=== PATIENT | female | born 1930 | race Caucasian/White ===

== ENCOUNTER 2021-10-28 17:25 | Inpatient (IN) ==
[2021-10-28] MEDS ORDERED: MoRPHine SULFATE 2 MG/ML CARP IV PRN (17:35)
[2021-10-28] MEDS ORDERED: MoRPHine SULFATE 4 MG/ML 1 ML CARP\\VIAL IV PRN (17:35)
[2021-10-28] MEDS ORDERED: SODIUM CHLORIDE 0.9% 500 ML IV ONE (17:37)
--- NOTE | 2021-10-28 17:37 | Emergency Department Note ---
Impression & Plan Closed hip fracture, Fall, Elevated bilirubin ED Provider Note NAME: SANTOS CAMPOS AGE: 89 SEX: F : 1930 ARRIVES VIA: Ambulance INFORMANT: Patient ED PROVIDER(S): Rex Richards DO CHIEF COMPLAINT: fall HPI: Patient is an 89-year-old female who presents to the ER for mechanical fall. She fell while she was in the shower. She slipped and lost her balance. She fell and hit her right hip. No headache or neck pain. She did not hit her head or neck. No chest pain or shortness of breath. No other extremity pain. No tingling or numbness. She was unable to get off the floor. She eventually was able to reach her life alert and got help. She was brought in by EMS. No other exacerbating or remitting factors. ROS: See above HPI for pertinent positives & negatives. A total of 10 systems reviewed and were otherwise negative. PAST MEDICAL HISTORY:See Below PAST SURGICAL HISTORY:See Below FAMILY HISTORY:See Below SOCIAL HISTORY:See Below HOME MEDICATIONS:See Below ALLERGIES:See Below VITALS:See Below PHYSICAL EXAMINATION: GENERAL: alert, well appearing, well nourished, no distress, non-toxic HEAD: normal cephalic, atraumatic EYE EXAM: normal conjunctiva, PERRL and EOM's grossly intact OROPHARYNX: no exudate, no erythema, lips, buccal mucosa, and tongue normal and mucous membranes are moist NECK: supple, no nuchal rigidity, no adenopathy, non-tender CHEST: stable to compression anteriorly and posteriorly LUNGS: clear to auscultation. Normal chest wall mechanics HEART: no murmurs, S1 normal and S2 normal ABDOMEN: abdomen soft, non-tender, normo-active bowel sounds, no masses, no rebound or guarding. PELVIS: stable to compression anteriorly and posteriorly BACK: Back is symmetrical on inspection and there is no deformity, no midline tenderness, no CVA tenderness. UPPER EXTREMITIES: full active and passive range of motion of all joints without tenderness to palpation LOWER EXTREMITIES: No tenderness on palpation of the entire left lower extremity. Right lower extremity is shortened and externally rotated with pain over the right hip. DPs 24. Able to wiggle toes. Gross station intact. NEURO EXAM: Normal sensorium, cranial nerves II-XII grossly intact, normal speech, no gross weakness of arms, no gross weakness of legs. GCS: 15. MEDICAL DECISION MAKING: Patient is an 89-year-old female who presents the ER for mild conical fall. She denies hitting her head or neck. IV was established blood work was obtained. Labs show 1.9 thousand. No significant anemia. BMP with no change unr emarkable. T bili slightly up at 1.1. CK only at 283. UA was clean. COVID- negative. X-rays of the pelvis and right hip show a right hip fracture. Patient was given IV morphine. She is updated bedside. Discussed with son. She is admitted for further work-up to Dr. Powell. Triage Nursing notes reviewed. Limited review of prior medical records performed Vital Signs: reviewed and remarkable for no significant abnormalities Differential diagnosis: Differential diagnoses include major intracranial, cervical, spinal, thoracic, abdominal, pelvic and neurologic injury. Fracture, contusion, sprain, strain, laceration, abrasions included as well. ER treatment provided: See below Diagnostics interpreted by me: ECG: sinus rhythm rate 87 Left axis PVC Nonspecific ST wave changes in the lateral leads Septal Q waves QTC 430 Cardiac Monitoring: An order was placed for continuous cardiac monitoring. The monitor shows a rate of 90 with sinus rhythm. Laboratory studies: As stated above and show below. Imaging studies: X-rays of the pelvis and right hip show a right hip fracture Consultation(s): Discussed with Dr. Monzon for further evaluation Procedures: none Critical Care: None Past Med/Surg History Surgical History (Updated 05/28/19 @ 10:52 by Jacquelin Hayes LPN) History of bilateral mastectomy History of hysterectomy History of tonsillectomy History of wisdom tooth extraction Family History (Updated 05/28/19 @ 10:50 by Jacquelin Hayes LPN) Sister Brain cancer Father Hypertension Stroke Mother Diabetes Cardiac disorder Social History (Updated 08/03/21 @ 14:44 by BRIGITTE Dhillon) Smoking Status: Former smoker Second Hand Exposure: No; Do You Dip or Chew Tobacco: No; Tobacco Cessation Education Requested by Patient: No Hx Alcohol Use: No Hx Substance Use: No Preferred Language: Belarusian Communication Ability: Effective Wound Care Coordinator Required: No Beliefs That Will Affect Care: None Current Living Situation: Alone Other Information That Helps Us Care for You: No Feels Safe at Home: Yes Safety Concerns: Feels Safe At This Time Assistive Devices: Glasses, Hearing Aid - Bilateral and Walker Allergies Allergies Allergy/AdvReac Type Severity Reaction Status Date / Time chocolate flavor Allergy Intermediate FACE Verified 10/28/21 19:30 BREAKS OUT, GETS INFECTED latex Allergy Intermediate Hives Verified 10/28/21 19:30 erythromycin base Allergy Unknown UNKNOWN Verified 10/28/21 19:30 Penicillins Allergy Unknown UNKNOWN Verified 10/28/21 19:30 [id number] Reductase Allergy Unknown CAN'T Verified 10/28/21 19:30 Inhibitor REMEMBER [[id number]-Mjb-Vyc Reductase Inhibitor] Sulfa (Sulfonamide Allergy Unknown UNKNOWN Verified 10/28/21 19:30 Antibiotics) Home Meds Home Medications Medication Instructions Recorded Confirmed allopurinol 100 mg tablet 100 mg PO BID 05/28/19 10/28/21 cyanocobalamin (vitamin B-12) 500 500 mcg PO QAM 05/28/19 10/28/21 mcg tablet doxazosin 1 mg tablet (Cardura) 1 mg PO HS 05/28/19 10/28/21 loratadine 10 mg tablet (Claritin) 10 mg PO QAM 05/28/19 10/28/21 thyroid (pork) 60 mg tablet 60 mg PO DAILYBB 05/28/19 10/28/21 zinc 50 mg tablet 50 mg PO QAM 05/28/19 10/28/21 sertraline 25 mg tablet (Zoloft) 12.5 mg PO DAILY 07/14/20 10/28/21 acetaminophen 500 mg tablet 500 mg PO DAILY PRN Pain 10/28/21 10/28/21 (Tylenol Extra Strength) cholecalciferol (vitamin D3) 25 25 mcg PO QAM 10/28/21 10/28/21 mcg (1,000 unit) tablet (Vitamin D3) fluticasone 250 mcg-salmeterol 50 1 inh inhalation BID 10/28/21 10/28/21 mcg/dose blistr powdr for inhalation hydrochlorothiazide 12.5 mg capsule 12.5 mg PO QAM 10/28/21 10/28/21 ondansetron HCl 4 mg tablet 4 mg PO Q8 PRN nausea or vomiting 10/28/21 10/28/21 urea 20 % topical cream 1 applic topical DAILY 10/28/21 10/28/21 Results & Data (ED) Vital Signs Vital Signs - 24 hr 10/28/21 17:25 Temperature 36.4 C L Temperature Source Oral Pulse Rate 91 H Respiratory Rate 17 Respiratory Effort / Characteristics Non-Labored Respiratory Depth Normal Respiratory Pattern Regular Blood Pressure 122/77 Blood Pressure Mean 92 Pulse Oximetry 98 Oxygen Delivery Method Room Air Sepsis Recent Fever Within 48 Hours No Sepsis New/Unexplained Change in Mental Status No Sepsis Action Taken by Nursing No Action Required Laboratory Data Result diagrams: 10/28/21 18:07 10/28/21 18:07 Lab Results 10/28/21 10/28/21 10/28/21 Range/Units 18:07 18:07 18:07 WBC 11.99 H (4.8-10.8) K/ul RBC 4.16 (3.93-5.22) M/uL Hgb 12.6 (12.0-16.0) g/dl Hct 38.8 (34.1-44.9) % MCV 93.3 (80.0-100.0) fL MCH 30.3 (25.0-34.0) pg MCHC 32.5 (32.0-36.0) g/dL RDW Std Deviation 50.2 H (36.4-46.3) fL RDW Coeff of Brijesh 14.6 H (11.5-14.5) % Plt Count 242 (130-400) K/uL MPV 9.8 (9.4-12.3) fL Immature Gran % (Auto) 0.4 % Neut % (Auto) 80.7 % Lymph % (Auto) 9.8 % [place] % (Auto) 8.7 % Eos % (Auto) 0.1 % Baso % (Auto) 0.3 % Neut # (Auto) 9.68 H (1.4-6.5) K/uL Lymph # (Auto) 1.18 L (1.2-3.4) K/uL [place] # (Auto) 1.04 H (0.24-0.82) K/uL Eos # (Auto) 0.01 (0-0.50) K/uL Baso # (Auto) 0.03 (0-0.2) K/uL Immature Gran # (Auto) 0.05 H (0.00-0.02) K/uL PT 10.7 (9.0-12.0) Seconds INR 1.0 (0.9-1.1) APTT 26.0 (21.0-31.0) Seconds PTT Ratio 0.9 Sodium 138 (136-145) mmol/L Potassium 4.0 (3.5-5.1) mmol/L Chloride 105 (98-107) mmol/L Carbon Dioxide 24 (21-32) mmol/L Anion Gap 9 (3-11) BUN 28 H (6-23) mg/dl Creatinine 1.07 (0.6-1.2) mg/dl Est Cr Clr Drug Dosing 35.7 ml/min Est GFR ( Amer) 53.7 ml/min Est GFR (Non-Af Amer) 46.3 ml/min BUN/Creatinine Ratio 26.2 H (10-20) Glucose 131 H (70-99(Fasting)) mg/dl Calcium 9.3 (8.5-10.1) mg/dl Magnesium 1.9 (1.7-2.4) mg/dl Total Bilirubin 1.1 H (0.2-1.0) mg/dl AST 25 (13-39) U/L ALT 16 (7-52) U/L Alkaline Phosphatase 81 (34-104) U/L Total Creatine Kinase 283 H (26-192) U/L Total Protein 7.2 (6.0-8.3) gm/dl Albumin 4.2 (3.4-5.0) gm/dl Globulin 3.0 (2.5-4.0) gm/dl Albumin/Globulin Ratio 1.4 (0.9-2) Urine Color Urine Appearance (Clear) Urine pH (4.5-7.5) Ur Specific [place] (1.000-1.030) Urine Protein (Negative) Urine Glucose (UA) (Negative) Urine Ketones (Negative) Urine Blood (Negative) Urine Nitrite (Negative) Urine Bilirubin (Negative) Urine Urobilinogen (Negative) Ur Leukocyte Esterase (Negative) Urine WBC (Auto) (0-5) /hpf Urine RBC (Auto) (0-4) /hpf U Hyaline Cast (Auto) (0-5) /lpf U Epithel Cells (Auto) (0-5) /lpf Urine Bacteria (Auto) (Negative) SARS-CoV-2, RNA, NAAT (NEGATIVE) 10/28/21 10/28/21 Range/Units 18:07 18:10 WBC (4.8-10.8) K/ul RBC (3.93-5.22) M/uL Hgb (12.0-16.0) g/dl Hct (34.1-44.9) % MCV (80.0-100.0) fL MCH (25.0-34.0) pg MCHC (32.0-36.0) g/dL RDW Std Deviation (36.4-46.3) fL RDW Coeff of Brijesh (11.5-14.5) % Plt Count (130-400) K/uL MPV (9.4-12.3) fL Immature Gran % (Auto) % Neut % (Auto) % Lymph % (Auto) % [place] % (Auto) % Eos % (Auto) % Baso % (Auto) % Neut # (Auto) (1.4-6.5) K/uL Lymph # (Auto) (1.2-3.4) K/uL [place] # (Auto) (0.24-0.82) K/uL Eos # (Auto) (0-0.50) K/uL Baso # (Auto) (0-0.2) K/uL Immature Gran # (Auto) (0.00-0.02) K/uL PT (9.0-12.0) Seconds INR (0.9-1.1) APTT (21.0-31.0) Seconds PTT Ratio Sodium (136-145) mmol/L Potassium (3.5-5.1) mmol/L Chloride (98-107) mmol/L Carbon Dioxide (21-32) mmol/L Anion Gap (3-11) BUN (6-23) mg/dl Creatinine (0.6-1.2) mg/dl Est Cr Clr Drug Dosing ml/min Est GFR ( Amer) ml/min Est GFR (Non-Af Amer) ml/min BUN/Creatinine Ratio (10-20) Glucose (70-99(Fasting)) mg/dl Calcium (8.5-10.1) mg/dl Magnesium (1.7-2.4) mg/dl Total Bilirubin (0.2-1.0) mg/dl AST (13-39) U/L ALT (7-52) U/L Alkaline Phosphatase (34-104) U/L Total Creatine Kinase (26-192) U/L Total Protein (6.0-8.3) gm/dl Albumin (3.4-5.0) gm/dl Globulin (2.5-4.0) gm/dl Albumin/Globulin Ratio (0.9-2) Urine Color Yellow Urine Appearance Clear (Clear) Urine pH 5.0 (4.5-7.5) Ur Specific [place] 1.017 (1.000-1.030) Urine Protein Negative (Negative) Urine Glucose (UA) Negative (Negative) Urine Ketones Trace H (Negative) Urine Blood Trace H (Negative) Urine Nitrite Negative (Negative) Urine Bilirubin Negative (Negative) Urine Urobilinogen Negative (Negative) Ur Leukocyte Esterase Trace H (Negative) Urine WBC (Auto) 1-5 (0-5) /hpf Urine RBC (Auto) 0-4 (0-4) /hpf U Hyaline Cast (Auto) 1-5 (0-5) /lpf U Epithel Cells (Auto) 10-20 H (0-5) /lpf Urine Bacteria (Auto) Negative (Negative) SARS-CoV-2, RNA, NAAT NEGATIVE (NEGATIVE) Administered Medications Discontinued Medications Sodium Chloride (Nss) 500 mls @ 999 mls/hr IV .Q31M ONE Stop: 10/28/21 18:07 Last Infusion: 10/28/21 20:46 Dose: 0 mls/hr Documented By: Admin: 10/28/21 18:14 Dose: 999 mls/hr Documented By: FABIANA Morphine Sulfate (Morphine Sulfate 4 Mg/Ml 1 Ml Carp\Vial) 4 mg IV Q1H PRN PRN Reason: Severe Pain (Rating 7,8,9,10) Stop: 11/11/21 17:34 Last Admin: 10/28/21 18:36 Dose: 4 mg Documented By: FABIANA Imaging Data Radiologist's Impression: Hip/Pelvis X-Ray 10/28/21 17:35 XR hip RT 2V w pelvis CLINICAL HISTORY: Right hip pain following fall. COMPARISON: None FINDINGS: Note is made of an acute comminuted displaced intertrochanteric fracture of the right femur. No acute fracture within the pelvis or left hip is noted. Moderate bilateral hip osteoarthritis is present. IMPRESSION: Acute comminuted displaced intertrochanteric fracture of the right femur. ACT 112: Negative or not required by law. Electronically signed by: Rosalio Navarro M.D. 10/28/2021 6:42 PM Chest X-Ray 10/28/21 18:34 XR chest 1V portable CLINICAL HISTORY: hip fx COMPARISON STUDY: Chest radiograph November 07, 2019. FINDINGS: Lung volumes are normal. Lungs are clear. There is no pneumothorax or pleural effusion. Cardiac size is stable. Mediastinal contours are normal. There is no evidence for pulmonary edema. IMPRESSION: No acute cardiopulmonary findings. No change in appearance of the chest. ACT 112: Negative or not required by law. Electronically signed by: Rosalio Navarro M.D. 10/28/2021 6:42 PM Discharge Plan Visit Data Chief Complaint: Fall Stated Complaint: fall ED Provider: Rex Richards Discharge Problem: Closed hip fracture, Fall, Elevated bilirubin Patient Disposition: Admitted As Inpatient Discharge Instructions Interventions: ED Discharge Assessment Last Done: 10/28/21 21:14
[2021-10-28 18:17] LABS: Basophils # (auto) 0.03 K/uL (0-0.2); Basophils % (auto) 0.3 %; Eosinophils # (auto) 0.01 K/uL (0-0.50); Eosinophils % (auto) 0.1 %; Hematocrit (blood only) 38.8 % (34.1-44.9); Hemoglobin 12.6 g/dl (12.0-16.0); Immature Granulocytes # (auto) 0.05 K/uL (0.00-0.02); Immature Granulocytes % (auto) 0.4 %; Lymphocytes # (auto) 1.18 K/uL (1.2-3.4); Lymphocytes % (auto) 9.8 %; Mean Corpuscular Hemoglobin 30.3 pg (25.0-34.0); Mean Corpuscular Hgb Conc 32.5 g/dL (32.0-36.0); Mean Corpuscular Volume 93.3 fL (80.0-100.0); Mean Platelet Volume 9.8 fL (9.4-12.3); Monocytes # (auto) 1.04 K/uL (0.24-0.82); Monocytes % (auto) 8.7 %; Neutrophils # (auto) 9.68 K/uL (1.4-6.5); Neutrophils % (auto) 80.7 %; Platelet Count 242 K/uL (130-400); RDW Coefficient of Variation 14.6 % (11.5-14.5); RDW Standard Deviation 50.2 fL (36.4-46.3); Red Blood Count 4.16 M/uL (3.93-5.22); White Blood Count 11.99 K/ul (4.8-10.8)
[2021-10-28 18:21] LABS: Appearance Urine Clear (Clear); Bacteria Urine Automated Negative (Negative); Bilirubin Urine Negative (Negative); Blood Urine Trace (Negative); Color Urine Yellow; Glucose Urine UA Negative (Negative); Ketones Urine Trace (Negative); Leukocyte Esterase Urine Trace (Negative); Nitrite Urine Negative (Negative); Protein Urine Negative (Negative); RBC Urine Automated 0-4 /hpf (0-4); Specific Gravity Urine 1.017 (1.000-1.030); Urobilinogen Urine Negative (Negative)
[2021-10-28 18:30] LABS: Partial Thromboplastin Ratio 0.9; Prothrombin Time 10.7 Seconds (9.0-12.0)
--- NOTE | 2021-10-28 18:43 | XRay Report ---
XR hip RT 2V w pelvis CLINICAL HISTORY: Right hip pain following fall. COMPARISON: None FINDINGS: Note is made of an acute comminuted displaced intertrochanteric fracture of the right femu r. No acute fracture within the pelvis or left hip is noted. Moderate bilateral hip osteoarthritis is present. IMPRESSION: Acute comminuted displaced intertrochanteric fracture of the right femur. ACT 112: Negative or not required by law. Electronically signed by: Rosalio Navarro M.D. 10/28/2021 6:42 PM
--- NOTE | 2021-10-28 18:44 | XRay Report ---
XR chest 1V portable CLINICAL HISTORY: hip fx COMPARISON STUDY: Chest radiograph November 07, 2019. FINDINGS: Lung volumes are normal. Lungs are clear. There is no pneumothorax or pleural effusion. Car diac size is stable. Mediastinal contours are normal. There is no evidence for pulmonary edema. IMPRESSION: No acute cardiopulmonary findings. No change in appearance of the chest. ACT 112: Negative or not required by law. Electronically signed by: Rosalio Navarro M.D. 10/28/2021 6:42 PM
[2021-10-28 18:45] LABS: Albumin Globulin Ratio 1.4 (0.9-2); Albumin Level 4.2 gm/dl (3.4-5.0); BUN Creatinine Ratio 26.2 (10-20); Bilirubin,Total 1.1 mg/dl (0.2-1.0); Calcium 9.3 mg/dl (8.5-10.1); Creatinine Clr Calc Pharmacy 35.7 ml/min; Est GFR (African American) 53.7 ml/min; Est GFR (Non-African American) 46.3 ml/min; Total Protein 7.2 gm/dl (6.0-8.3)
[2021-10-28] MEDS ORDERED: SODIUM CHLORIDE 0.9% 1000ML 1,000 ML IV ONE (19:15)
[2021-10-28 19:35] LABS: Magnesium 1.9 mg/dl (1.7-2.4)
--- NOTE | 2021-10-28 20:17 | History & Physical Report ---
Date of Service October 28, 2021 Assessment & Plan (1) Closed hip fracture: Plan: Traumatic hip fracture right secondary to mechanical fall Hypertension, elevated secondary to discomfort Patient not taking home doxazosin for some time now. Hypothyroidism, euthyroid as of recent outpatient TSH right breast cancer status post surgery status post Arimidex Rx, patient in remission for more than a decade LLE swelling rule out DVT hyperglycemia rule out DM past tobacco abuse. [facility] Orthopedics consult Re: Right hip fracture N.p.o. after midnight in anticipation of procedure. Revised Cardiac Risk Index (RCRI): 1. High-risk type of surgery (examples include vascular and any open intraperitoneal or intrathoracic procedures). No 2. History of ischemic heart disease (history of myocardial infarction or positive exercise test, current compliant of chest pain considered to be secondary to myocardial ischemia, use of nitrate therapy, or ECG with pathological Q waves; do not count prior coronary revascularization procedure unless one of the other criteria for ischemic heart disease is present). No 3. History of heart failure. No 4. History of cerebrovascular disease. No 5. Diabetes mellitus requiring treatment with insulin. No 6. Preoperative serum creatinine >2.0. No Pt has revised cardiac index score of 0 points. (Class I Risk.) 3.9% 30-day risk of , AR, or cardiac arrest Acceptable risk for cardiac complications if surgery recommended by Orthopedics and patient/family agreeable to attendant procedural benefits and risks. Analgesia, resume home Doxazosin if BP still uncontrolled LLE Dopplers rule out DVT Check hemoglobin A1c DVT prophylaxis. SCDs if no blood clot on leg Dopplers Re: Possible procedure Full code Patient son requesting updates from providers. Dr. Seven Lloyd, [phone]. Text document was generated using [employer] voice recognition software. It may contain grammatical or spelling errors. Kindly contact undersigned for clarification of any documentation item in ques tion. History of Present Illness Chief Complaint: Fall, right hip pain Primary Care Provider: Kaila Kwon MD History obtained from patient, family, and records. History somewhat limited from patient secondary to hearing impairment. Medical history significant for hypertension, hyperlipidemia hypothyroidism, right breast cancer status post surgery status post Arimidex Rx, past tobacco abuse. Patient fell in the shower today. Achy right hip pain without head trauma. No chest pain, no SOB, no LOC. Patient unable to get up from the floor. Patient also complaining of left lower extremity swelling/bump which she has noted for about a month. PCP had recommended an outpatient leg venous ultrasound to rule out a clot which patient has not complied with. Patient brought to the ER for evaluation. Medical History as above Surgical History : Finger amputation, mastectomy right, parotidectomy, cataract surgery, PETER, tonsillectomy/adenoidectomy Family History : DM, heart disease, stroke, brain tumor Personal/Social history : Past tobacco abuse, no EtOH intake, retired senior telecommunications technician, lives by herself Baseline Functionality : Still able to do light housework at home without rest/exertional chest pain, S OB prior to injury Allergies Allergy/AdvReac Type Severity Reaction Status Date / Time chocolate flavor Allergy Intermediate FACE Verified 10/28/21 19:30 BREAKS OUT, GETS INFECTED latex Allergy Intermediate Hives Verified 10/28/21 19:30 erythromycin base Allergy Unknown UNKNOWN Verified 10/28/21 19:30 Penicillins Allergy Unknown UNKNOWN Verified 10/28/21 19:30 Hkveisc-UXI-WtT Reductase Allergy Unknown CAN'T Verified 10/28/21 19:30 Inhibitor REMEMBER [Ftphcrv-Xag-Wog Reductase Inhibitor] Sulfa (Sulfonamide Allergy Unknown UNKNOWN Verified 10/28/21 19:30 Antibiotics) Home Medications Medication Instructions Recorded Confirmed Type allopurinol 100 mg tablet 100 mg PO BID 05/28/19 10/28/21 History cyanocobalamin (vitamin B-12) 500 500 mcg PO QAM 05/28/19 10/28/21 History mcg tablet loratadine 10 mg tablet (Claritin) 10 mg PO QAM 05/28/19 10/28/21 History thyroid (pork) 60 mg tablet 60 mg PO DAILYBB 05/28/19 10/28/21 History zinc 50 mg tablet 50 mg PO QAM 05/28/19 10/28/21 History sertraline 25 mg tablet (Zoloft) 12.5 mg PO DAILY 07/14/20 10/28/21 History acetaminophen 500 mg tablet 500 mg PO DAILY PRN Pain 10/28/21 10/28/21 History (Tylenol Extra Strength) cholecalciferol (vitamin D3) 25 25 mcg PO QAM 10/28/21 10/28/21 History mcg (1,000 unit) tablet (Vitamin D3) fluticasone 250 mcg-salmeterol 50 1 inh inhalation BID 10/28/21 10/28/21 History mcg/dose blistr powdr for inhalation hydrochlorothiazide 12.5 mg capsule 12.5 mg PO QAM 10/28/21 10/28/21 History ondansetron HCl 4 mg tablet 4 mg PO Q8 PRN nausea or vomiting 10/28/21 10/28/21 History urea 20 % topical cream 1 applic topical DAILY 10/28/21 10/28/21 History Past Med/Surg History Surgical History (Updated 05/28/19 @ 10:52 by Jacquelin Hayes LPN) History of bilateral mastectomy History of hysterectomy History of tonsillectomy History of wisdom tooth extraction Family History (Updated 05/28/19 @ 10:50 by Jacquelin Hayes LPN) Sister Brain cancer Father Hypertension Stroke Mother Diabetes Cardiac disorder Social History (Updated 08/03/21 @ 14:44 by BRIGITTE Dhillon) Smoking Status: Former smoker Second Hand Exposure: No; Do You Dip or Chew Tobacco: No; Tobacco Cessation Education Requested by Patient: No Hx Alcohol Use: No Hx Substance Use: No Preferred Language: Bhutanese Communication Ability: Effective Cotton Stripper Required: No Beliefs That Will Affect Care: None Current Living Situation: Alone Other Information That Helps Us Care for You: No Feels Safe at Home: Yes Safety Concerns: Feels Safe At This Time Assistive Devices: Glasses, Hearing Aid - Bilateral and Walker Review of Systems Review of Systems: As per HPI, all other systems reviewed and negative Physical Exam Physical Exam: GENERAL: Comfortable, slightly hard of hearing, obese, no respiratory distress SKIN: Normal color, warm HEENT: [place] palpebral conjunctivae, no ptosis, moist buccal mucosa NECK : Supple, no tenderness CHEST : CTA, no tenderness HEART : RRR, no obvious murmurs ABDOMEN: Some distention, nontender EXTREMITIES : Bilateral LE swelling with venous varicosities, right hip tenderness, minimal LLE tenderness, NEUROLOGIC : Coherent, no facial asymmetry, hard of hearing, gait and stance not assessed Results & Data Results & Data ([facility]) Vital Signs (Past 12 Hours) Vital Signs Temp Pulse Resp BP Pulse Ox O2 Del Method 10/28/21 17:25 36.4 C L 91 H 17 122/77 98 Room Air Laboratory Results Laboratory Results WBC 11.99 K/ul (4.8-10.8) H 10/28/21 18:07 RBC 4.16 M/uL (3.93-5.22) 10/28/21 18:07 Hgb 12.6 g/dl (12.0-16.0) 10/28/21 18:07 Hct 38.8 % (34.1-44.9) 10/28/21 18:07 MCV 93.3 fL (80.0-100.0) 10/28/21 18:07 MCH 30.3 pg (25.0-34.0) 10/28/21 18:07 MCHC 32.5 g/dL (32.0-36.0) 10/28/21 18:07 RDW Std Deviation 50.2 fL (36.4-46.3) H 10/28/21 18:07 RDW Coeff of Brijesh 14.6 % (11.5-14.5) H 10/28/21 18:07 Plt Count 242 K/uL (130-400) 10/28/21 18:07 MPV 9.8 fL (9.4-12.3) 10/28/21 18:07 Immature Gran % (Auto) 0.4 % 10/28/21 18:07 Neut % (Auto) 80.7 % 10/28/21 18:07 Lymph % (Auto) 9.8 % 10/28/21 18:07 [place] % (Auto) 8.7 % 10/28/21 18:07 Eos % (Auto) 0.1 % 10/28/21 18:07 Baso % (Auto) 0.3 % 10/28/21 18:07 Neut # (Auto) 9.68 K/uL (1.4-6.5) H 10/28/21 18:07 Lymph # (Auto) 1.18 K/uL (1.2-3.4) L 10/28/21 18:07 [place] # (Auto) 1.04 K/uL (0.24-0.82) H 10/28/21 18:07 Eos # (Auto) 0.01 K/uL (0-0.50) 10/28/21 18:07 Baso # (Auto) 0.03 K/uL (0-0.2) 10/28/21 18:07 Immature Gran # (Auto) 0.05 K/uL (0.00-0.02) H 10/28/21 18:07 PT 10.7 Seconds (9.0-12.0) 10/28/21 18:07 INR 1.0 (0.9-1.1) 10/28/21 18:07 APTT 26.0 Seconds (21.0-31.0) 10/28/21 18:07 PTT Ratio 0.9 10/28/21 18:07 Sodium 138 mmol/L (136-145) 10/28/21 18:07 Potassium 4.0 mmol/L (3.5-5.1) 10/28/21 18:07 Chloride 105 mmol/L (98-107) 10/28/21 18:07 Carbon Dioxide 24 mmol/L (21-32) 10/28/21 18:07 Anion Gap 9 (3-11) 10/28/21 18:07 BUN 28 mg/dl (6-23) H 10/28/21 18:07 Creatinine 1.07 mg/dl (0.6-1.2) 10/28/21 18:07 Est Cr Clr Drug Dosing 35.7 ml/min 10/28/21 18:07 Est GFR ( Amer) 53.7 ml/min 10/28/21 18:07 Est GFR (Non-Af Amer) 46.3 ml/min 10/28/21 18:07 BUN/Creatinine Ratio 26.2 (10-20) H 10/28/21 18:07 Glucose 131 mg/dl (70-99(Fasting)) H 10/28/21 18:07 Calcium 9.3 mg/dl (8.5-10.1) 10/28/21 18:07 Magnesium 1.9 mg/dl (1.7-2.4) 10/28/21 18:07 Total Bilirubin 1.1 mg/dl (0.2-1.0) H 10/28/21 18:07 AST 25 U/L (13-39) 10/28/21 18:07 ALT 16 U/L (7-52) 10/28/21 18:07 Alkaline Phosphatase 81 U/L (34-104) 10/28/21 18:07 Total Creatine Kinase 283 U/L (26-192) H 10/28/21 18:07 Total Protein 7.2 gm/dl (6.0-8.3) 10/28/21 18:07 Albumin 4.2 gm/dl (3.4-5.0) 10/28/21 18:07 Globulin 3.0 gm/dl (2.5-4.0) 10/28/21 18:07 Albumin/Globulin Ratio 1.4 (0.9-2) 10/28/21 18:07 Urine Color Yellow 10/28/21 18:10 Urine Appearance Clear (Clear) 10/28/21 18:10 Urine pH 5.0 (4.5-7.5) 10/28/21 18:10 Ur Specific [place] 1.017 (1.000-1.030) 10/28/21 18:10 Urine Protein Negative (Negative) 10/28/21 18:10 Urine Glucose (UA) Negative (Negative) 10/28/21 18:10 Urine Ketones Trace (Negative) H 10/28/21 18:10 Urine Blood Trace (Negative) H 10/28/21 18:10 Urine Nitrite Negative (Negative) 10/28/21 18:10 Urine Bilirubin Negative (Negative) 10/28/21 18:10 Urine Urobilinogen Negative (Negative) 10/28/21 18:10 Ur Leukocyte Esterase Trace (Negative) H 10/28/21 18:10 Urine WBC (Auto) 1-5 /hpf (0-5) 10/28/21 18:10 Urine RBC (Auto) 0-4 /hpf (0-4) 10/28/21 18:10 U Hyaline Cast (Auto) 1-5 /lpf (0-5) 10/28/21 18:10 U Epithel Cells (Auto) 10-20 /lpf (0-5) H 10/28/21 18:10 Urine Bacteria (Auto) Negative (Negative) 10/28/21 18:10 SARS-CoV-2, RNA, NAAT NEGATIVE (NEGATIVE) 10/28/21 18:07 Impressions Hip/Pelvis X-Ray 10/28/21 17:35 XR hip RT 2V w pelvis CLINICAL HISTORY: Right hip pain following fall. COMPARISON: None FINDINGS: Note is made of an acute comminuted displaced intertrochanteric fracture of the right femur. No acute fracture within the pelvis or left hip is noted. Moderate bilateral hip osteoarthritis is present. IMPRESSION: Acute comminuted displaced intertrochanteric fracture of the right femur. ACT 112: Negative or not required by law. Electronically signed by: Rosalio Navarro M.D. 10/28/2021 6:42 PM Chest X-Ray 10/28/21 18:34 XR chest 1V portable CLINICAL HISTORY: hip fx COMPARISON STUDY: Chest radiograph November 07, 2019. FINDINGS: Lung volumes are normal. Lungs are clear. There is no pneumothorax or pleural effusion. Cardiac size is stable. Mediastinal contours are normal. There is no evidence for pulmonary edema. IMPRESSION: No acute cardiopulmonary findings. No change in appearance of the chest. ACT 112: Negative or not required by law. Electronically signed by: Rosalio Navarro M.D. 10/28/2021 6:42 PM Diagnostic Findings EKG as per my interpretation : Rate 85, NSR, LAD, LAFB, LVH, T wave abnormalities lateral leads, PVCs
[2021-10-28] MEDS ORDERED: PROMETHAZINE HCL 12.5 MG in SODIUM CHLORIDE 0.9% 50 ML IV PRN (20:21)
[2021-10-28] MEDS ORDERED: DOXAZOSIN MESYLATE 1 MG TAB PO STA (20:21)
[2021-10-28] MEDS ORDERED: MAGNESIUM SULFATE / D5W 1 GM/100 ML BAG IV ONE (20:25)
[2021-10-28] MEDS ORDERED: NALOXONE HCL 0.4 MG/1 ML VIAL/CARP IV PRN (21:31)
[2021-10-28] MEDS ORDERED: MAGNESIUM HYDROXIDE SUSP 30 ML UDC PO PRN (21:31)
[2021-10-28] MEDS ORDERED: bisacodyL 10 MG SUPP PR PRN (21:31)
[2021-10-28] MEDS: allopurinoL 100 MG TAB PO SCH (22:27)
[2021-10-28] MEDS: MoRPHine SULFATE 2 MG/ML CARP IV PRN (22:35)
[2021-10-29] MEDS: MoRPHine SULFATE 2 MG/ML CARP IV PRN ×2 (02:17→15:50)
[2021-10-29] MEDS: ARMOUR THYROID 30 MG TAB PO SCH (05:05)
[2021-10-29] MEDS ORDERED: ceFAZolin 2000MG 2,000 MG/15 ML SYR IV SCH (06:00)
[2021-10-29 06:04] LABS: Basophils # (auto) 0.03 K/uL (0-0.2); Basophils % (auto) 0.4 %; Eosinophils # (auto) 0.02 K/uL (0-0.50); Eosinophils % (auto) 0.3 %; Hematocrit (blood only) 32.2 % (34.1-44.9); Hemoglobin 10.6 g/dl (12.0-16.0); Immature Granulocytes # (auto) 0.02 K/uL (0.00-0.02); Immature Granulocytes % (auto) 0.3 %; Lymphocytes % (auto) 23.2 %; Mean Corpuscular Hemoglobin 30.5 pg (25.0-34.0); Mean Corpuscular Hgb Conc 32.9 g/dL (32.0-36.0); Mean Corpuscular Volume 92.5 fL (80.0-100.0); Mean Platelet Volume 9.9 fL (9.4-12.3); Monocytes # (auto) 0.88 K/uL (0.24-0.82); Monocytes % (auto) 12.7 %; Neutrophils # (auto) 4.36 K/uL (1.4-6.5); Neutrophils % (auto) 63.1 %; Platelet Count 202 K/uL (130-400); RDW Coefficient of Variation 14.8 % (11.5-14.5); RDW Standard Deviation 50.1 fL (36.4-46.3); Red Blood Count 3.48 M/uL (3.93-5.22); White Blood Count 6.91 K/ul (4.8-10.8)
[2021-10-29 06:27] LABS: BUN Creatinine Ratio 25.9 (10-20); Calcium 8.2 mg/dl (8.5-10.1); Creatinine Clr Calc Pharmacy 46.2 ml/min; Est GFR (African American) 75.2 ml/min; Est GFR (Non-African American) 64.8 ml/min
--- NOTE | 2021-10-29 06:49 | Electrocardiogram Report ---
Test Reason : Blood Pressure : / mmHG Vent. Rate : 087 BPM Atrial Rate : 087 BPM P-R Int : 200 ms QRS Dur : 098 ms QT Int : 358 ms P-R-T Axes : 055 -36 095 degrees QTc Int : 430 ms Poor data quality, interpretation may be adversely affected Sinus rhythm with Premature supraventricular complexes and with occasional Premature ventricular comp lexes Left axis deviation Minimal voltage criteria for LVH, may be normal variant Septal infarct (cited on or before 07-NOV-2019) Nonspecific T wave abnormality Abnormal ECG When compared with ECG of 07-NOV-2019 17:38, T wave inversion no longer evident in Anterior leads Premature ventricular complexes are now Present Premature atrial complexes are now Present Confirmed by Ramon Guan ([id number]) on 10/29/2021 6:49:09 AM Referred By: REFERRED SELF Confirmed By:Ramon Guan
--- NOTE | 2021-10-29 07:12 | Ultrasound Report ---
LEFT LOWER EXTREMITY VENOUS DOPPLER HISTORY: Left ankle swelling/pain COMPARISON STUDY: None. FINDINGS: There is normal compressibility, flow, and augmentation within the left lower extremity cleo p venous system. IMPRESSION: No DVT within the left lower extremity. ACT 112: Negative or not required by law. Electronically signed by: Alex Linton M.D. 10/29/2021 7:11 AM
[2021-10-29 08:02] LABS: Estimated Average Glucose 120 mg/dl; Hemoglobin A1C 5.8 % (4.5-5.6)
[2021-10-29] MEDS: SODIUM CHLORIDE 0.9% 1000ML 1,000 ML IV SCH ×2 (09:41→15:50)
[2021-10-29] MEDS: FLUTICASONE/VILANTEROL 100/25MCG 14 PUFFS/INHALER INH SCH (09:41)
--- NOTE | 2021-10-29 09:58 | Anesthesiology Consultation ---
Date of Service October 29, 2021 Assessment & Plan Chart Review Chart Review: key entry operator initiated Consults Requested none History Surgery Operation Date: 10/29/21 09:30 Proposed Procedures p Right Hip Troch Nail - Luis M Jacky Valentino MD Height/Weight Height: 5 ft 2 in Weight: 77.2 kg Allergies Allergy/AdvReac Type Severity Reaction Status Date / Time chocolate flavor Allergy Intermediate FACE Verified 10/28/21 19:30 BREAKS OUT, GETS INFECTED latex Allergy Intermediate Hives Verified 10/28/21 19:30 erythromycin base Allergy Unknown UNKNOWN Verified 10/28/21 19:30 Penicillins Allergy Unknown UNKNOWN Verified 10/28/21 19:30 Nqtesfo-CFE-FiL Reductase Allergy Unknown CAN'T Verified 10/28/21 19:30 Inhibitor REMEMBER [Pkmfmig-Bcl-Lez Reductase Inhibitor] Sulfa (Sulfonamide Allergy Unknown UNKNOWN Verified 10/28/21 19:30 Antibiotics) Medications Home Medications Medication Instructions Recorded Confirmed Last Taken allopurinol 100 mg tablet 100 mg PO BID 05/28/19 10/28/21 10/28/21 cyanocobalamin (vitamin B-12) 500 500 mcg PO QAM 05/28/19 10/28/21 10/28/21 mcg tablet loratadine 10 mg tablet (Claritin) 10 mg PO QAM 05/28/19 10/28/21 10/28/21 thyroid (pork) 60 mg tablet 60 mg PO DAILYBB 05/28/19 10/28/21 10/28/21 zinc 50 mg tablet 50 mg PO QAM 05/28/19 10/28/21 10/28/21 sertraline 25 mg tablet (Zoloft) 12.5 mg PO DAILY 07/14/20 10/28/21 10/28/21 acetaminophen 500 mg tablet 500 mg PO DAILY PRN Pain 10/28/21 10/28/21 Unknown (Tylenol Extra Strength) cholecalciferol (vitamin D3) 25 25 mcg PO QAM 10/28/21 10/28/21 10/28/21 mcg (1,000 unit) tablet (Vitamin D3) fluticasone 250 mcg-salmeterol 50 1 inh inhalation BID 10/28/21 10/28/21 10/28/21 mcg/dose blistr powdr for inhalation hydrochlorothiazide 12.5 mg capsule 12.5 mg PO QAM 08/10/28/21 10/28/21 ondansetron HCl 4 mg tablet 4 mg PO Q8 PRN nausea or vomiting 10/28/21 10/28/21 Unknown urea 20 % topical cream 1 applic topical DAILY 10/28/21 10/28/21 Unknown Active Medications Generic Name Dose Route Start Last Admin Trade Name Freq PRN Reason Stop Dose Admin Allopurinol 100 mg 10/28/21 21:31 10/28/21 22:27 Allopurinol 100 Mg Tab PO 11/27/21 21:30 Not Given BID KATHY Fluticasone/Vilanterol 1 puffs 10/29/21 09:00 10/29/21 09:41 Fluticasone/Vilanterol 100/25mcg 14 Puffs/Inhaler INH 11/28/21 08:59 1 puffs DAILY KATHY Administration Sodium Chloride 1,000 mls @ 60 mls/hr 10/29/21 09:00 10/29/21 09:41 Nss 1000ml IV 11/28/21 08:59 60 mls/hr .[id number] KATHY Administration Morphine Sulfate 2 mg 10/28/21 20:21 10/29/21 02:17 Morphine Sulfate 2 Mg/Ml Carp IV 11/11/21 20:20 2 mg Q3H PRN Administration Pain Thyroid 60 mg 10/29/21 06:30 10/29/21 05:05 [place] Thyroid 30 Mg Tab PO 11/28/21 06:29 60 mg DAILYBB KATHY Administration NPO Date Last Intake of Fluids: 10/28/21 Time Last Intake of Fluids: 23:59 Date Last Intake of Solids: 10/28/21 Past Family History Family History Sister Brain cancer Father Hypertension Stroke Mother Diabetes Cardiac disorder Past Surgical History Surgical History History of bilateral mastectomy History of hysterectomy History of tonsillectomy History of wisdom tooth extraction Social History Smoking Status: Former smoker tobacco type: cigarettes Do You Dip or Chew Tobacco: No Hx Alcohol Use: No Hx Substance Use: No Physical Exam Vital Signs Last Vital Signs Temp 98.8 F 10/29/21 09:12 Pulse 80 10/29/21 09:12 Resp 16 10/29/21 09:12 BP 104/58 L 10/29/21 09:12 Pulse Ox 93 10/29/21 09:12 O2 Del Method 10/29/21 09:12 Testing Laboratory Results 10/29/21 05:40 10/29/21 05:40 PT 10.7 Seconds (9.0-12.0) 10/28/21 18:07 INR 1.0 (0.9-1.1) 10/28/21 18:07 APTT 26.0 Seconds (21.0-31.0) 10/28/21 18:07 Hemoglobin A1c 5.8 % (4.5-5.6) H 10/28/21 18:07 Urine Color Yellow 10/28/21 18:10 Urine Appearance Clear (Clear) 10/28/21 18:10 Urine pH 5.0 (4.5-7.5) 10/28/21 18:10 Ur Specific [place] 1.017 (1.000-1.030) 10/28/21 18:10 Urine Protein Negative (Negative) 10/28/21 18:10 Urine Glucose (UA) Negative (Negative) 10/28/21 18:10 Urine Ketones Trace (Negative) H 10/28/21 18:10 Urine Nitrite Negative (Negative) 10/28/21 18:10 Ur Leukocyte Esterase Trace (Negative) H 10/28/21 18:10 Urine WBC (Auto) 1-5 /hpf (0-5) 10/28/21 18:10 Urine RBC (Auto) 0-4 /hpf (0-4) 10/28/21 18:10 U Hyaline Cast (Auto) 1-5 /lpf (0-5) 10/28/21 18:10 U Epithel Cells (Auto) 10-20 /lpf (0-5) H 10/28/21 18:10 Urine Bacteria (Auto) Negative (Negative) 10/28/21 18:10 Blood Type B Positive 10/29/21 05:40 Antibody Screen NEGATIVE 10/29/21 05:40 Electrocardiogram Date: 10/28/21 Poor data quality, interpretation may be adversely affected Sinus rhythm with Premature supraventricular complexes and with occasional Premature ventricular complexes, rate 87 bpm Left axis deviation Minimal voltage criteria for LVH, may be normal variant Septal infarct (cited on or before 07-NOV-2019) Nonspecific T wave abnormality Abnormal ECG When compared with ECG of 07-NOV-2019 17:38, T wave inversion no longer evident in Anterior leads Premature ventricular complexes are now Present Premature atrial complexes are now Present Confirmed by Ramon Guan ([id number]) on 10/29/2021 6:49:09 AM Chest X-Ray Date: 10/28/21 IMPRESSION: No acute cardiopulmonary findings. No change in appearance of the chest.
--- NOTE | 2021-10-29 10:04 | Orthopedic Consultation ---
Date of Consultation October 29, 2021 Assessment & Plan (1) Closed hip fracture: Patient will require right hip open reduction internal fixation of right intertrochanteric hip fracture. Scheduled for OR today -Consent obtained -NPO -Hold any anticoagulants -Vitals and labs stable -Intra-op infection prophylaxis: 2 grams Ancef -Cleared by medicine for surgery -IV LR fluids per pre op protocol -Void occupational therapy asst to OR -Clip/prep operative extremity -TEDS knee high/foot pumps non-operative leg intra-op -Discussed case and post op care with patients son, Dr Townsend and daughter, Lorene who was in the room with patient. Recommend rehab after surgery, family agrees -Case discussed and agreed upon with Dr Valentino Present on Admission?: Yes Supervising Physician Co-Signing Physician Notes I, Dr. Valentino, saw and examined the patient and discussed the management with my PA. I reviewed my PAs note and agree with the documented findings and the plan of care I developed. The patient is a 89 year old female who sustained a right hip fracture from a ground level fall. The patients treatment options of conservative versus surgical intervention were discussed. Since the patient was an ambulatory with walker prior to the injury and to avoid the risks of bed sores, pulmonary complications, and to give the best chance for ambulation, I recommended surgery. The patient understands the risks of surgery, which include but are not limited to: bleeding, infection, re-operation, damage to nerves and arteries, continued pain, failure of the hardware, mal-union, non-union, DVT, and . In addition the patient is aware of the 20-30% morbidity associated with hip fracture for up to 1 year following a hip fracture. The patient has elected to proceed with surgery and the informed consent was signed. The patient understands all of these instructions and explanations, all of their questions have been satisfactorily addressed. Placed on the add-on schedule for later today History of Present Illness Reason for Consultation: right hip fracture Requesting Physician: Phoebe Valentino MD Attending Physician: Laura Bolden MD History of Present Illness [place] is a 89 year old female with PMH sig for hypertension, hyperlipidemia, hypothyroidism, gout, CKD3, right breast cancer status post surgery status post Arimidex Rx, past tobacco abuse, varicose veins, who fell yesterday in the shower and sustained right hip intertrochanteric fracture. Orthopedics consulted for further management. Patient daughter is in the room during todays visit. Patient reports pain in her right groin and some radiating pain in her thigh. She denies numbness and tingling. Her daughter says that she has some weakness in her right leg that she has had for a while. 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 Prior to surgery patient was walking with a walker. It is recommended that patient have surgery to restore hip function and give best chance of fracture healing and possibility to return to walking. Risks and benefits were explained and patient elected to proceed with surgery. Patient is not on any blood thinners. She last ate yesterday evening. Allergies Allergy/AdvReac Type Severity Reaction Status Date / Time chocolate flavor Allergy Intermediate FACE Verified 10/28/21 19:30 BREAKS OUT, GETS INFECTED latex Allergy Intermediate Hives Verified 10/28/21 19:30 erythromycin base Allergy Unknown UNKNOWN Verified 10/28/21 19:30 Penicillins Allergy Unknown UNKNOWN Verified 10/28/21 19:30 Zyozaiq-IQM-OkL Reductase Allergy Unknown CAN'T Verified 10/28/21 19:30 Inhibitor REMEMBER [[place]-Sit-Olx Reductase Inhibitor] Sulfa (Sulfonamide Allergy Unknown UNKNOWN Verified 10/28/21 19:30 Antibiotics) Home Medications Medication Instructions Recorded Confirmed Type allopurinol 100 mg tablet 100 mg PO BID 05/28/19 10/28/21 History cyanocobalamin (vitamin B-12) 500 500 mcg PO QAM 05/28/19 10/28/21 History mcg tablet loratadine 10 mg tablet (Claritin) 10 mg PO QAM 05/28/19 10/28/21 History thyroid (pork) 60 mg tablet 60 mg PO DAILYBB 05/28/19 10/28/21 History zinc 50 mg tablet 50 mg PO QAM 05/28/19 10/28/21 History sertraline 25 mg tablet (Zoloft) 12.5 mg PO DAILY 07/14/20 10/28/21 History acetaminophen 500 mg tablet 500 mg PO DAILY PRN Pain 10/28/21 10/28/21 History (Tylenol Extra Strength) cholecalciferol (vitamin D3) 25 25 mcg PO QAM 10/28/21 10/28/21 History mcg (1,000 unit) tablet (Vitamin D3) fluticasone 250 mcg-salmeterol 50 1 inh inhalation BID 10/28/21 10/28/21 History mcg/dose blistr powdr for inhalation hydrochlorothiazide 12.5 mg capsule 12.5 mg PO QAM 10/28/21 10/28/21 History ondansetron HCl 4 mg tablet 4 mg PO Q8 PRN nausea or vomiting 10/28/21 10/28/21 History urea 20 % topical cream 1 applic topical DAILY 10/28/21 10/28/21 History Patient History Surgical History History of bilateral mastectomy History of hysterectomy History of tonsillectomy History of wisdom tooth extraction Family History Sister Brain cancer Father Hypertension Stroke Mother Diabetes Cardiac disorder Social History (Updated 08/03/21 @ 14:44 by BRIGITTE Dhillon) Smoking Status: Former smoker Second Hand Exposure: No; Do You Dip or Chew Tobacco: No; Tobacco Cessation Education Requested by Patient: No Hx Alcohol Use: No Hx Substance Use: No Preferred Language: Swedish Communication Ability: Effective Operations Mgr Required: No Beliefs That Will Affect Care: None marital status: Unknown Current Living Situation: Alone Other Information That Helps Us Care for You: No Feels Safe at Home: Yes Safety Concerns: Feels Safe At This Time Assistive Devices: Walker Review of Systems Review of Systems: Per HPI Patient does not have any history of DM, heart disease, blood clots Physical Exam Physical Exam: General: Pt laying in hospital bed AA&O, in NAD, calm and cooperative during exam Lower Extremity: Right leg is shortened and externally rotated. Varicose veins apparent on right distal extremity. NVI with sensation to light touch, 1+ DP pulse present. Lower extremity noted to have good color and temperature. Patient has groin pain. She is able to DF and PF her foot. Results & Data ([facility]) Vital Signs (Past 12 Hours) Vital Signs Temp Pulse Resp BP BP Pulse Ox Pulse Ox 10/29/21 09:12 37.1 C 80 16 104/58 L 93 10/29/21 06:35 36.7 C 79 16 122/73 97 10/29/21 06:35 97 10/29/21 02:36 95 10/29/21 02:35 37.0 C 82 16 109/64 95 O2 Del Method O2 Del Method 10/29/21 09:12 Room Air 10/29/21 06:35 Room Air 10/29/21 06:35 Room Air 10/29/21 02:36 Room Air 10/29/21 02:35 Room Air Laboratory Results 10/29/21 10/29/21 10/29/21 Range/Units 05:40 05:40 05:40 WBC 6.91 (4.8-10.8) K/ul RBC 3.48 L (3.93-5.22) M/uL Hgb 10.6 L (12.0-16.0) g/dl Hct 32.2 L (34.1-44.9) % MCV 92.5 (80.0-100.0) fL MCH 30.5 (25.0-34.0) pg MCHC 32.9 (32.0-36.0) g/dL RDW Std Deviation 50.1 H (36.4-46.3) fL RDW Coeff of Brijesh 14.8 H (11.5-14.5) % Plt Count 202 (130-400) K/uL MPV 9.9 (9.4-12.3) fL Immature Gran % (Auto) 0.3 % Neut % (Auto) 63.1 % Lymph % (Auto) 23.2 % Fannin % (Auto) 12.7 % Eos % (Auto) 0.3 % Baso % (Auto) 0.4 % Neut # (Auto) 4.36 (1.4-6.5) K/uL Lymph # (Auto) 1.60 (1.2-3.4) K/uL [place] # (Auto) 0.88 H (0.24-0.82) K/uL Eos # (Auto) 0.02 (0-0.50) K/uL Baso # (Auto) 0.03 (0-0.2) K/uL Immature Gran # (Auto) 0.02 (0.00-0.02) K/uL PT (9.0-12.0) Seconds INR (0.9-1.1) APTT (21.0-31.0) Seconds PTT Ratio Sodium 139 (136-145) mmol/L Potassium 4.0 (3.5-5.1) mmol/L Chloride 109 H (98-107) mmol/L Carbon Dioxide 23 (21-32) mmol/L Anion Gap 7 (3-11) BUN 21 (6-23) mg/dl Creatinine 0.81 (0.6-1.2) mg/dl Est Cr Clr Drug Dosing 46.2 ml/min Est GFR ( Amer) 75.2 ml/min Est GFR (Non-Af Amer) 64.8 ml/min BUN/Creatinine Ratio 25.9 H (10-20) Glucose 118 H (70-99(Fasting)) mg/dl Estimat Average Glucose mg/dl Hemoglobin A1c (4.5-5.6) % Calcium 8.2 L (8.5-10.1) mg/dl Magnesium (1.7-2.4) mg/dl Total Bilirubin (0.2-1.0) mg/dl AST (13-39) U/L ALT (7-52) U/L Alkaline Phosphatase (34-104) U/L Total Creatine Kinase 351 H (26-192) U/L Total Protein (6.0-8.3) gm/dl Albumin (3.4-5.0) gm/dl Globulin (2.5-4.0) gm/dl Albumin/Globulin Ratio (0.9-2) Urine Color Urine Appearance (Clear) Urine pH (4.5-7.5) Ur Specific Institute (1.000-1.030) Urine Protein (Negative) Urine Glucose (UA) (Negative) Urine Ketones (Negative) Urine Blood (Negative) Urine Nitrite (Negative) Urine Bilirubin (Negative) Urine Urobilinogen (Negative) Ur Leukocyte Esterase (Negative) Urine WBC (Auto) (0-5) /hpf Urine RBC (Auto) (0-4) /hpf U Hyaline Cast (Auto) (0-5) /lpf U Epithel Cells (Auto) (0-5) /lpf Urine Bacteria (Auto) (Negative) SARS-CoV-2, RNA, NAAT (NEGATIVE) Blood Type B Positive Antibody Screen NEGATIVE 10/28/21 10/28/21 10/28/21 Range/Units 18:10 18:07 18:07 WBC (4.8-10.8) K/ul RBC (3.93-5.22) M/uL Hgb (12.0-16.0) g/dl Hct (34.1-44.9) % MCV (80.0-100.0) fL MCH (25.0-34.0) pg MCHC (32.0-36.0) g/dL RDW Std Deviation (36.4-46.3) fL RDW Coeff of Brijesh (11.5-14.5) % Plt Count (130-400) K/uL MPV (9.4-12.3) fL Immature Gran % (Auto) % Neut % (Auto) % Lymph % (Auto) % [place]ann[place] % (Auto) % Eos % (Auto) % Baso % (Auto) % Neut # (Auto) (1.4-6.5) K/uL Lymph # (Auto) (1.2-3.4) K/uL [place]ann[place] # (Auto) (0.24-0.82) K/uL Eos # (Auto) (0-0.50) K/uL Baso # (Auto) (0-0.2) K/uL Immature Gran # (Auto) (0.00-0.02) K/uL PT (9.0-12.0) Seconds INR (0.9-1.1) APTT (21.0-31.0) Seconds PTT Ratio Sodium (136-145) mmol/L Potassium (3.5-5.1) mmol/L Chloride (98-107) mmol/L Carbon Dioxide (21-32) mmol/L Anion Gap (3-11) BUN (6-23) mg/dl Creatinine (0.6-1.2) mg/dl Est Cr Clr Drug Dosing ml/min Est GFR ( Amer) ml/min Est GFR (Non-Af Amer) ml/min BUN/Creatinine Ratio (10-20) Glucose (70-99(Fasting)) mg/dl Estimat Average Glucose 120 mg/dl Hemoglobin A1c 5.8 H (4.5-5.6) % Calcium (8.5-10.1) mg/dl Magnesium (1.7-2.4) mg/dl Total Bilirubin (0.2-1.0) mg/dl AST (13-39) U/L ALT (7-52) U/L Alkaline Phosphatase (34-104) U/L Total Creatine Kinase (26-192) U/L Total Protein (6.0-8.3) gm/dl Albumin (3.4-5.0) gm/dl Globulin (2.5-4.0) gm/dl Albumin/Globulin Ratio (0.9-2) Urine Color Yellow Urine Appearance Clear (Clear) Urine pH 5.0 (4.5-7.5) Ur Specific Institute 1.017 (1.000-1.030) Urine Protein Negative (Negative) Urine Glucose (UA) Negative (Negative) Urine Ketones Trace H (Negative) Urine Blood Trace H (Negative) Urine Nitrite Negative (Negative) Urine Bilirubin Negative (Negative) Urine Urobilinogen Negative (Negative) Ur Leukocyte Esterase Trace H (Negative) Urine WBC (Auto) 1-5 (0-5) /hpf Urine RBC (Auto) 0-4 (0-4) /hpf U Hyaline Cast (Auto) 1-5 (0-5) /lpf U Epithel Cells (Auto) 10-20 H (0-5) /lpf Urine Bacteria (Auto) Negative (Negative) SARS-CoV-2, RNA, NAAT NEGATIVE (NEGATIVE) Blood Type Antibody Screen 10/28/21 10/28/21 10/28/21 Range/Units 18:07 18:07 18:07 WBC 11.99 H (4.8-10.8) K/ul RBC 4.16 (3.93-5.22) M/uL Hgb 12.6 (12.0-16.0) g/dl Hct 38.8 (34.1-44.9) % MCV 93.3 (80.0-100.0) fL MCH 30.3 (25.0-34.0) pg MCHC 32.5 (32.0-36.0) g/dL RDW Std Deviation 50.2 H (36.4-46.3) fL RDW Coeff of Brijesh 14.6 H (11.5-14.5) % Plt Count 242 (130-400) K/uL MPV 9.8 (9.4-12.3) fL Immature Gran % (Auto) 0.4 % Neut % (Auto) 80.7 % Lymph % (Auto) 9.8 % Fannin % (Auto) 8.7 % Eos % (Auto) 0.1 % Baso % (Auto) 0.3 % Neut # (Auto) 9.68 H (1.4-6.5) K/uL Lymph # (Auto) 1.18 L (1.2-3.4) K/uL [place] # (Auto) 1.04 H (0.24-0.82) K/uL Eos # (Auto) 0.01 (0-0.50) K/uL Baso # (Auto) 0.03 (0-0.2) K/uL Immature Gran # (Auto) 0.05 H (0.00-0.02) K/uL PT 10.7 (9.0-12.0) Seconds INR 1.0 (0.9-1.1) APTT 26.0 (21.0-31.0) Seconds PTT Ratio 0.9 Sodium 138 (136-145) mmol/L Potassium 4.0 (3.5-5.1) mmol/L Chloride 105 (98-107) mmol/L Carbon Dioxide 24 (21-32) mmol/L Anion Gap 9 (3-11) BUN 28 H (6-23) mg/dl Creatinine 1.07 (0.6-1.2) mg/dl Est Cr Clr Drug Dosing 35.7 ml/min Est GFR ( Amer) 53.7 ml/min Est GFR (Non-Af Amer) 46.3 ml/min BUN/Creatinine Ratio 26.2 H (10-20) Glucose 131 H (70-99(Fasting)) mg/dl Estimat Average Glucose mg/dl Hemoglobin A1c (4.5-5.6) % Calcium 9.3 (8.5-10.1) mg/dl Magnesium 1.9 (1.7-2.4) mg/dl Total Bilirubin 1.1 H (0.2-1.0) mg/dl AST 25 (13-39) U/L ALT 16 (7-52) U/L Alkaline Phosphatase 81 (34-104) U/L Total Creatine Kinase 283 H (26-192) U/L Total Protein 7.2 (6.0-8.3) gm/dl Albumin 4.2 (3.4-5.0) gm/dl Globulin 3.0 (2.5-4.0) gm/dl Albumin/Globulin Ratio 1.4 (0.9-2) Urine Color Urine Appearance (Clear) Urine pH (4.5-7.5) Ur Specific Institute (1.000-1.030) Urine Protein (Negative) Urine Glucose (UA) (Negative) Urine Ketones (Negative) Urine Blood (Negative) Urine Nitrite (Negative) Urine Bilirubin (Negative) Urine Urobilinogen (Negative) Ur Leukocyte Esterase (Negative) Urine WBC (Auto) (0-5) /hpf Urine RBC (Auto) (0-4) /hpf U Hyaline Cast (Auto) (0-5) /lpf U Epithel Cells (Auto) (0-5) /lpf Urine Bacteria (Auto) (Negative) SARS-CoV-2, RNA, NAAT (NEGATIVE) Blood Type Antibody Screen Diagnostic Findings XR hip RT 2V w pelvis CLINICAL HISTORY: Right hip pain following fall. COMPARISON: None FINDINGS: Note is made of an acute comminuted displaced intertrochanteric fracture of the right femur. No acute fracture within the pelvis or left hip is noted. Moderate bilateral hip osteoarthritis is present. IMPRESSION: Acute comminuted displaced intertrochanteric fracture of the right femur.
[2021-10-29] MEDS ORDERED: BUPIVACAINE 0.5 % 5 MG/1 ML PF 10ML VIAL ONE (10:28)
[2021-10-29] MEDS ORDERED: fentaNYL citrate 100 MCG/2 ML VIAL IV PRN (10:31)
[2021-10-29] MEDS ORDERED: ePHEDrine sulfate 50 MG/ML AMP IV PRN (10:31)
[2021-10-29] MEDS ORDERED: ONDANSETRON INJ 2 MG/ML 2 ML VIAL IV PRN (10:31)
[2021-10-29] MEDS ORDERED: ATROPINE SULFATE 0.1 MG/ML 10ML SYR IV PRN (10:31)
--- NOTE | 2021-10-29 10:34 | Anesthesiology Consultation ---
Date of Service October 29, 2021 Assessment & Plan (1) Encounter for pre-operative examination: Chart Review Chart Review: Acceptable Risk for Surgery and Patient NOT seen in Pre Admission Testing Consults Requested none History Surgery Operation Date: 10/29/21 09:30 Proposed Procedures p Right Hip Troch Nail - Luis M Jacky Valentino MD Height/Weight Height: 5 ft 2 in Weight: 77.2 kg Allergies Allergy/AdvReac Type Severity Reaction Status Date / Time chocolate flavor Allergy Intermediate FACE Verified 10/28/21 19:30 BREAKS OUT, GETS INFECTED latex Allergy Intermediate Hives Verified 10/28/21 19:30 erythromycin base Allergy Unknown UNKNOWN Verified 10/28/21 19:30 Penicillins Allergy Unknown UNKNOWN Verified 10/28/21 19:30 Tsamcrj-KXE-ZuB Reductase Allergy Unknown CAN'T Verified 10/28/21 19:30 Inhibitor REMEMBER [Xfsmbkp-Afz-Hay Reductase Inhibitor] Sulfa (Sulfonamide Allergy Unknown UNKNOWN Verified 10/28/21 19:30 Antibiotics) Medications Home Medications Medication Instructions Recorded Confirmed Last Taken allopurinol 100 mg tablet 100 mg PO BID 05/28/19 10/28/21 10/28/21 cyanocobalamin (vitamin B-12) 500 500 mcg PO QAM 05/28/19 10/28/21 10/28/21 mcg tablet loratadine 10 mg tablet (Claritin) 10 mg PO QAM 05/28/19 10/28/21 10/28/21 thyroid (pork) 60 mg tablet 60 mg PO DAILYBB 05/28/19 10/28/21 10/28/21 zinc 50 mg tablet 50 mg PO QAM 05/28/19 10/28/21 10/28/21 sertraline 25 mg tablet (Zoloft) 12.5 mg PO DAILY 07/14/20 10/28/21 10/28/21 acetaminophen 500 mg tablet 500 mg PO DAILY PRN Pain 10/28/21 10/28/21 Unknown (Tylenol Extra Strength) cholecalciferol (vitamin D3) 25 25 mcg PO QAM 10/28/21 10/28/21 10/28/21 mcg (1,000 unit) tablet (Vitamin D3) fluticasone 250 mcg-salmeterol 50 1 inh inhalation BID 10/28/21 10/28/21 10/28/21 mcg/dose blistr powdr for inhalation hydrochlorothiazide 12.5 mg capsule 12.5 mg PO QAM 10/28/21 10/28/21 10/28/21 ondansetron HCl 4 mg tablet 4 mg PO Q8 PRN nausea or vomiting 10/28/21 10/28/21 Unknown urea 20 % topical cream 1 applic topical DAILY 10/28/21 10/28/21 Unknown Active Medications Generic Name Dose Route Start Last Admin Trade Name Freq PRN Reason Stop Dose Admin Allopurinol 100 mg 10/28/21 21:31 10/28/21 22:27 Allopurinol 100 Mg Tab PO 11/27/21 21:30 Not Given BID KATHY Fluticasone/Vilanterol 1 puffs 10/29/21 09:00 10/29/21 09:41 Fluticasone/Vilanterol 100/25mcg 14 Puffs/Inhaler INH 11/28/21 08:59 1 puffs DAILY KATHY Administration Sodium Chloride 1,000 mls @ 60 mls/hr 10/29/21 09:00 10/29/21 09:41 Nss 1000ml IV 11/28/21 08:59 60 mls/hr .[id number] KATHY Administration Morphine Sulfate 2 mg 10/28/21 20:21 10/29/21 02:17 Morphine Sulfate 2 Mg/Ml Carp IV 11/11/21 20:20 2 mg Q3H PRN Administration Pain Thyroid 60 mg 10/29/21 06:30 10/29/21 05:05 [place] Thyroid 30 Mg Tab PO 11/28/21 06:29 60 mg DAILYBB KATHY Administration NPO Date Last Intake of Fluids: 10/28/21 Time Last Intake of Fluids: 23:59 Date Last Intake of Solids: 10/28/21 Past Medical History Medical History (Updated 10/29/21 @ 10:34 by Remington Bailey MD) Elevated bilirubin Fall Hypertension Exercise / Class Metabolic Activity II 4-5 Yardwork/Stairs/Walk up hill Past Family History Family History Sister Brain cancer Father Hypertension Stroke Mother Diabetes Cardiac disorder Past Surgical History Surgical History History of bilateral mastectomy History of hysterectomy History of tonsillectomy History of wisdom tooth extraction Past Anesthesia History No Hx of Anesthesia Complications and No Family Hx of Anesthesia Complications History of PONV No Hx of PONV and No Hx of Motion Sickness Social History Smoking Status: Former smoker tobacco type: cigarettes Do You Dip or Chew Tobacco: No Hx Alcohol Use: No Hx Substance Use: No Physical Exam Vital Signs Last Vital Signs Temp 37.1 C 10/29/21 09:12 Pulse 80 10/29/21 09:12 Resp 16 10/29/21 09:12 BP 104/58 L 10/29/21 09:12 Pulse Ox 93 10/29/21 09:12 O2 Del Method 10/29/21 09:12 Testing Laboratory Results 10/29/21 05:40 10/29/21 05:40 PT 10.7 Seconds (9.0-12.0) 10/28/21 18:07 INR 1.0 (0.9-1.1) 10/28/21 18:07 APTT 26.0 Seconds (21.0-31.0) 10/28/21 18:07 Hemoglobin A1c 5.8 % (4.5-5.6) H 10/28/21 18:07 Urine Color Yellow 10/28/21 18:10 Urine Appearance Clear (Clear) 10/28/21 18:10 Urine pH 5.0 (4.5-7.5) 10/28/21 18:10 Ur Specific [place] 1.017 (1.000-1.030) 10/28/21 18:10 Urine Protein Negative (Negative) 10/28/21 18:10 Urine Glucose (UA) Negative (Negative) 10/28/21 18:10 Urine Ketones Trace (Negative) H 10/28/21 18:10 Urine Nitrite Negative (Negative) 10/28/21 18:10 Ur Leukocyte Esterase Trace (Negative) H 10/28/21 18:10 Urine WBC (Auto) 1-5 /hpf (0-5) 10/28/21 18:10 Urine RBC (Auto) 0-4 /hpf (0-4) 10/28/21 18:10 U Hyaline Cast (Auto) 1-5 /lpf (0-5) 10/28/21 18:10 U Epithel Cells (Auto) 10-20 /lpf (0-5) H 10/28/21 18:10 Urine Bacteria (Auto) Negative (Negative) 10/28/21 18:10 Blood Type B Positive 10/29/21 05:40 Antibody Screen NEGATIVE 10/29/21 05:40 Electrocardiogram Date: 10/28/21 Poor data quality, interpretation may be adversely affected Sinus rhythm with Premature supraventricular complexes and with occasional Premature ventricular complexes, rate 87 bpm Left axis deviation Minimal voltage criteria for LVH, may be normal variant Septal infarct (cited on or before 07-NOV-2019) Nonspecific T wave abnormality Abnormal ECG When compared with ECG of 07-NOV-2019 17:38, T wave inversion no longer evident in Anterior leads Premature ventricular complexes are now Present Premature atrial complexes are now Present Confirmed by Ramon Guan ([id number]) on 10/29/2021 6:49:09 AM Chest X-Ray Date: 10/28/21 IMPRESSION: No acute cardiopulmonary findings. No change in appearance of the chest.
[2021-10-29] MEDS ORDERED: ceFAZolin 2,000 MG/15 ML IV PUSH IV ONE (10:40)
[2021-10-29] MEDS ORDERED: LIDOCAINE 1%/EPINEPHRINE 1:100,000 50 ML VIAL ONE (10:47)
[2021-10-29] MEDS ORDERED: BUPIVACAINE 0.5 % 5 MG/1 ML MPF 30ML VIAL ONE (10:47)
[2021-10-29] MEDS ORDERED: LIDOCAINE 2% MPF LOCAL 5 ML VIAL INFIL ONE (11:31)
[2021-10-29] MEDS ORDERED: PHENYLEPHRINE 100MCG/ML 5ML SYR ONE (11:31)
[2021-10-29] MEDS ORDERED: PROPOFOL IV EMULSION 10 MG/ML 20 ML VIAL IV ONE ×2 (11:31→11:34)
[2021-10-29] MEDS ORDERED: TRANEXAMIC ACID / 0.7% NACL 1000MG/100ML BAG IV ONE ×2 (12:05→13:46)
[2021-10-29] MEDS ORDERED: ceFAZolin 2000MG 2,000 MG/15 ML SYR IV ONE (12:33)
[2021-10-29] MEDS ORDERED: fentaNYL citrate 100 MCG/2 ML VIAL ONE (12:35)
--- NOTE | 2021-10-29 12:41 | Hospitalist Progress Note ---
Date of Service October 29, 2021 Assessment & Plan (1) Closed hip fracture: Plan 89-year-old lady with PMH of HTN, HLD, hypothyroidism, right breast cancer status post Arimidex treatment, past tobacco abuse presented to our hospital 10/28 with complaint of fall during shower on the day of arrival. She is being managed for the following: Traumatic right hip fracture Mechanical fall Patient fell during shower, reports right lower extremity giving up at knee. Denies trauma to head. Denies LOC. Admitting hip/pelvis x-ray:Acute comminuted displaced intertrochanteric fracture of the right femur. Acceptable risk for cardiac complications if surgery recommended by Orthopedics and patient/family agreeable to attendant procedural benefits and risks. CPK minimally elevated, will trend CPK. Patient n.p.o. today, for possible orthopedic repair today. Pain management, PT/OT and DVT prophylaxis per Ortho postoperatively. Hypertension: Blood pressure initially elevated due to acute stress, fairly under control. Caution with antihypertensive during perioperative period. Prediabetes: A1c 5.8 at presentation, recommend lifestyle modification and close follow-up with PCP for ongoing management. Other chronic medical conditions: Hypothyroidism, status post surgery and Arimidex treatment for right breast cancer, past tobacco abuse --->> continue with/resume home meds as and when appropriate. DVT prophylaxis: Per Ortho Full code Admission and Anticipated Discharge Date Admission Date: October 28, 2021 Subjective Patient seen and examined at bedside for follow-up of right closed hip fracture. Patient was lying in bed, on room air, NAD, denies any new acute events overnight. Patient is hard of hearing. Patient is n.p.o. for possible surgery today. Patient reports pain under control when staying still but has pain when she moves. Patient getting pain management and reports pain under control. Patient denies any fever/headache/dizziness/chest pain/sore throat/cough/other review of symptoms. Physical Exam Physical Exam: GENERAL: Alert and oriented x3. NAD, on RA. [place] HEENT: No pallor, no icterus. Pupils equal, round and reactive to light. Oral mucosa moist. NECK: No JVD, no neck masses. HEART: S1 and S2 heard. Regular rate and rhythm. Systolic murmur at aortic and pulmonic site, no gallop. RESPIRATORY SYSTEM: Normal AP diameter. No accessory muscle use. No wheezing, no crackles. ABDOMEN: Soft, bowel sounds present, nontender, no distention. CENTRAL NERVOUS SYSTEM: No facial droop. Speech is clear. Obeys simple commands. Moves extremities. EXTREMITIES: No edema, no erythema seen. Distal NV status WNL X RLE; Pain w/ movement x RLE. Decreased ROM x RLE. Ble dilated vericose veins noted. Results & Data Results & Data ([facility]) Vital Signs (Past 12 Hours) Vital Signs Temp Pulse Resp BP BP Pulse Ox Pulse Ox 10/29/21 08:15 10/29/21 10:35 37 C 79 18 107/51 L 95 10/29/21 09:12 37.1 C 80 16 104/58 L 93 10/29/21 06:35 36.7 C 79 16 122/73 97 10/29/21 06:35 97 10/29/21 02:36 95 10/29/21 02:35 37.0 C 82 16 109/64 95 O2 Del Method O2 Del Method 10/29/21 08:15 Room Air 10/29/21 10:35 10/29/21 09:12 Room Air 10/29/21 06:35 Room Air 10/29/21 06:35 Room Air 10/29/21 02:36 Room Air 10/29/21 02:35 Room Air
[2021-10-29] MEDS ORDERED: TRANEXAMIC ACID 100 MG/ML 10 ML VIAL IV ONE (13:49)
--- NOTE | 2021-10-29 13:58 | Post Operative Brief Note ---
Immediate Post Op Note v1 Date of Surgery October 29, 2021 Pre & Post Diagnosis Operation Date: 10/29/21 09:30 Pre-Op Diagnosis: Intertrochanteric Fracture Right Hip Post-Op Diagnosis: Intertrochanteric Fracture Right Hip, comminuted I identified the patient and participated in the time-out.: Yes Procedure Operation Date: 10/29/21 09:30 Actual Procedures p Intertrochanteric Nailing Right Hip Fracture(Right) - Luis M Valentino MD Surgeon Luis M Valentino MD Street Commissioner Moody Patel PA-C(No fellow avail) Estimated Blood Loss 75 Findings Consistent with Post-Op Diagnosis Fluids 1200 cc Drains Ackerman Catheter Anesthesia Type Spinal Complications none
--- NOTE | 2021-10-29 14:00 | Operative Report ---
Post Operative Report Pre & Post Diagnosis Operation Date: 10/29/21 09:30 Pre-Op Diagnosis: Intertrochanteric Fracture Right Hip Post-Op Diagnosis: Intertrochanteric Fracture Right Hip, comminuted I identified the patient and participated in the time-out.: Yes Procedure Operation Date: 10/29/21 09:30 Actual Procedures p Intertrochanteric Nailing Right Hip Fracture(Right) - Luis M Valentino MD Surgeon Luis M Valentino MD [employer] Moody Patel PA-C(No fellow avail) Estimated Blood Loss 75 Findings See Below Comminuted, displaced intra-trochanteric hip fracture, 4-part Fluids 1200 cc Specimens n/a Anesthesia Type Spinal Complications none Indications The patient is a 89 year old female who sustained a right hip fracture from a ground level fall. The patients treatment options of conservative versus surgical intervention were discussed. Since the patient was an ambulatory prior to the injury and to avoid the risks of bed sores, pulmonary complications, and to give the best chance for ambulation, I recommended surgery. The patient and family understands the risks of surgery, which include but are not limited to: bleeding, infection, re-operation, damage to nerves and arteries, continued pain, failure of the hardware, mal-union, non-union, DVT, and . In addition the patient is aware of the 20-30% morbidity associated with hip fracture for up to 1 year following a hip fracture. The patient and family understands all of these instructions and explanations, all of their questions have been satisfactorily addressed. The patient has elected to proceed with surgery and the informed consent was signed. Description of Procedure Moody Patel PA-C is assisting with positioning and closure due to fellow not available. IMPLANTS: 1) 11 x 360 mm long troch nail (Synthes). 2) 11 x 100 mm helical screw. 3) 5 x 44 & 46 mm locking screw. Procedure: The patient was taken to the Operating Room and placed in the supine position on the fracture table after spinal anesthesia was administered. A multidisciplinary time-out was performed identifying my initials on the right lower limb as the correct and operative limb. Prior to the incision being made, 2 grams of intravenous Ancef were given. Fluoroscopy was brought in to ensure adequate x-rays images could be obtained. A reduction was performed with traction, adduction, and internal rotation of the operative limb, as well as a crutch placed under the buttock. Once this was confirmed with Fluro, the right lower extremity was prepped in the standard fashion. The trochanter was marked as was the planned incision and trajectory of the helical screw. The incisions were injected with a 50:50 mixture of 1% Lidocaine plain and 0.5% Bupivacaine with epinephrine for a total of 10cc. The planned incision proximal to the greater trochanter was made and carried down through the Tensor Fascia Kim to expose the tip of the greater trochanter and the starting position. A starting guide wire was placed and the starting reamer was used to create the entry hole for the short implant. A size 11 was selected. A long guide wire was placed and the shaft was sequentially reamed to to 12.5mm. The implant was then inserted without difficulty. Small second and third incisions were made for placement of the helical blade and distal locking screws. The Helical blade was locked in place. The traction was released. The distal locking screws were placed using perfect circles, in the standard fashion, one in the dynamic oblong hole and the other in the static hole. Final x-rays were obtained showing TAD of less than 25mm. The wounds were copiously irrigated. The Tensor Fascia Kim was closed with 0 Vicryl. The subcutaneous tissue was closed with 3-0 Vicryl. The skin was closed with ZipLine and shield. The incisions were covered with 4x4s and Tegaderm. The patient was transfer to her hospital bed and taken to the PACU in stable condition. The sponge and needle counts were correct. Post-op Instructions: The patient was admitted to Med/Surg. The patient will be WBAT with a walker. The patient will be seen by PT/OT. Her labs will be checked in the am. DVT prophylaxis will be with TEDs, mechanical devices until 24hrs as the patient had a spinal and then Lovenox will be started. I attest to the content of the Intraoperative Record and any orders documented therein. Any exceptions are noted below.
--- NOTE | 2021-10-29 14:27 | Operative Report ---
Post Operative Report Pre & Post Diagnosis Operation Date: 10/29/21 09:30 Pre-Op Diagnosis: Intertrochanteric Fracture Right Hip Post-Op Diagnosis: Intertrochanteric Fracture Right Hip I identified the patient and participated in the time-out.: Yes Procedure Operation Date: 10/29/21 09:30 Actual Procedures p Intertrochanteric Nailing Right Hip Fracture(Right) - Luis M Valentino MD Surgeon Dr Luis M Valentino Treasury Director Moody Patel PA-C(No fellow avail) Estimated Blood Loss 75 Findings Consistent with Post-Op Diagnosis Specimens none Description of Procedure Pt was taken to operating room, placed under spinal with MAC. Pt was given 2g Ancef IV. Prepped and draped in sterile fashion. I was present during the entire case and assisted with positioning, instrumentation, closure and dressings. Please see Dr. Valentino's op report for further detail. Pt was awake and transferred to PACU in stable condition I attest to the content of the Intraoperative Record and any orders documented therein. Any exceptions are noted below.
[2021-10-29] MEDS ORDERED: SODIUM CHLORIDE 0.9% 1000ML 1,000 ML IV SCH (14:30)
--- NOTE | 2021-10-29 15:05 | Fluoroscopy Report ---
FL hip RT 2-3V CLINICAL HISTORY: RT TROCH NAIL TECHNIQUE: 4 views were obtained with the C-arm in the OR with the above procedure. Total fluoroscopy time was 152.9 seconds. Total skin dose was 31.3 mGy. Comparison: None available at the time of this dictation. FINDINGS/IMPRESSION: Intraoperative images were obtained of right trochanteric nail placement. Please correlate with intraoperative fluoroscopy and operative report. ACT 112: Negative or not required by law. Electronically signed by: Boston Arriaga M.D. 10/29/2021 3:03 PM
--- NOTE | 2021-10-29 15:18 | Anesthesiology Progress Note ---
Date of Service October 29, 2021 Anesthesia Post Procedure Vital Signs Vital Signs: Temp Pulse Pulse Resp BP BP BP 10/29/21 15:00 78 16 148/69 H 10/29/21 14:50 36.4 C L 80 16 151/69 H 10/29/21 14:40 36.4 C L 79 16 153/68 H 10/29/21 14:30 78 18 144/81 H 10/29/21 14:22 36.1 C L 82 18 136/73 10/29/21 08:15 10/29/21 10:35 37 C 79 18 107/51 L 10/29/21 09:12 37.1 C 80 16 104/58 L 10/29/21 06:35 36.7 C 79 16 122/73 10/29/21 06:35 10/29/21 02:36 10/29/21 02:35 37.0 C 82 16 109/64 10/28/21 21:38 37.1 C 91 H 18 163/69 H 10/28/21 21:14 90 14 120/78 10/28/21 17:25 36.4 C L 91 H 17 122/77 Pulse Ox Pulse Ox O2 Del Method O2 Del Method O2 Flow Rate 10/29/21 15:00 98 Nasal Cannula 2 10/29/21 14:50 98 Nasal Cannula 2 10/29/21 14:40 98 Nasal Cannula 2 10/29/21 14:30 98 Oxymask 5 10/29/21 14:22 93 Oxymask 5 10/29/21 08:15 Room Air 10/29/21 10:35 95 10/29/21 09:12 93 Room Air 10/29/21 06:35 97 Room Air 10/29/21 06:35 97 Room Air 10/29/21 02:36 95 Room Air 10/29/21 02:35 95 Room Air 10/28/21 21:38 95 Room Air 10/28/21 21:14 97 Room Air 10/28/21 17:25 98 Room Air Pain Intensity Right Hip: Pain Intensity: 5 Transfer of Care Handoff Completed per policy Notes Mental Status: alert / awake / arousable and participated in evaluation Nausea / Vomiting: adequately controlled Pain: adequately controlled Airway Patency, RR, SpO2: stable & adequate BP & HR: stable & adequate Hydration State: stable & adequate Neuraxial Anesthesia: was administered and sensory block is resolving Anesthetic Complications: no major complications apparent and Pt Satisfied with anesthetic care
[2021-10-29] MEDS: allopurinoL 100 MG TAB PO SCH ×2 (15:49→20:41)
--- NOTE | 2021-10-29 15:51 | XRay Report ---
XR femur RT 2V routine CLINICAL HISTORY: Post-Operative implant position. COMPARISON: Pelvis and right hip radiographs October 28, 2021. FINDINGS: Postoperative findings consistent with open reduction and internal fixation of the intertr ochanteric fracture of the right hip with intramedullary felipe and nail are noted. Fracture alignment h as markedly improved. Displacement of the lesser trochanter has improved. There are no unexpected rad iopaque foreign bodies. There are distal screws. IMPRESSION: Postoperative radiographs demonstrating internal fixation of the intertrochanteric fractu re of the right femur. ACT 112: Negative or not required by law. Electronically signed by: Rosalio Navarro M.D. 10/29/2021 3:49 PM
[2021-10-29] MEDS ORDERED: ALLERGY Noted to ORDERED Medication SCH (16:00)
[2021-10-29] MEDS: CYANOCOBALAMIN (B-12) 500 MCG TABLET PO SCH (17:23)
[2021-10-29] MEDS: CHOLECALCIFEROL 1,000 UNITS 25 MCG TAB PO SCH (17:23)
[2021-10-29] MEDS: SERTRALINE HCL 50 MG TABLET PO SCH ×2 (17:23→17:26)
[2021-10-29] MEDS: LORATADINE 10 MG TAB PO SCH (17:24)
[2021-10-29] MEDS: traMADol HCL 50 MG TABLET PO PRN (17:24)
[2021-10-29] MEDS: ceFAZolin 2000MG 2,000 MG/15 ML SYR IV SCH (20:41)
[2021-10-29] MEDS: ACETAMINOPHEN 325 MG TAB PO PRN (20:44)
[2021-10-29] MEDS ORDERED: DOXAZOSIN MESYLATE 1 MG TAB PO SCH (21:00)
[2021-10-30] MEDS: ENOXAPARIN INJ 30 MG/0.3 ML SYR SQ SCH ×2 (05:13→17:53)
[2021-10-30] MEDS: ceFAZolin 2000MG 2,000 MG/15 ML SYR IV SCH (05:13)
[2021-10-30] MEDS: ARMOUR THYROID 30 MG TAB PO SCH (05:14)
[2021-10-30] MEDS: traMADol HCL 50 MG TABLET PO PRN (05:39)
[2021-10-30] MEDS ORDERED: TRANEXAMIC ACID / 0.7% NACL 1,000 MG/100 ML BAG IV SCH ×2 (06:00→06:30)
[2021-10-30 07:56] LABS: Hematocrit (blood only) 28.5 % (34.1-44.9); Hemoglobin 9.3 g/dl (12.0-16.0); Mean Corpuscular Hemoglobin 30.3 pg (25.0-34.0); Mean Corpuscular Hgb Conc 32.6 g/dL (32.0-36.0); Mean Corpuscular Volume 92.8 fL (80.0-100.0); Mean Platelet Volume 10.1 fL (9.4-12.3); Platelet Count 188 K/uL (130-400); RDW Coefficient of Variation 14.7 % (11.5-14.5); RDW Standard Deviation 49.3 fL (36.4-46.3); Red Blood Count 3.07 M/uL (3.93-5.22); White Blood Count 9.53 K/ul (4.8-10.8)
[2021-10-30 08:22] LABS: BUN Creatinine Ratio 18.2 (10-20); Calcium 8.1 mg/dl (8.5-10.1); Creatinine Clr Calc Pharmacy 42.5 ml/min; Est GFR (Non-African American) 58.7 ml/min; Magnesium 1.8 mg/dl (1.7-2.4)
[2021-10-30] MEDS: allopurinoL 100 MG TAB PO SCH ×2 (09:28→20:02)
[2021-10-30] MEDS: hydroCHLOROthiazide 25 MG TAB PO SCH (09:28)
[2021-10-30] MEDS: FLUTICASONE/VILANTEROL 100/25MCG 14 PUFFS/INHALER INH SCH (09:28)
--- NOTE | 2021-10-30 09:36 | Orthopedic Progress Note ---
Date of Service October 30, 2021 Assessment & Plan (1) Closed hip fracture: Plan Traumatic right hip fracture Mechanical fall - Pt is doing as anticipated POD#1 - Dressing is intact this will be changed 10/31. -Weight bearing as tolerated with walker and assist as needed in ambulation -Anticipate and recommend d/c to SNF for rehabilitation, Continue with PT/OT while in hospital -She may use ice, at least 20 minutes 5 times a day to right hip for pain relief. -DVT prophylaxis: Lovenox 30 SQ twice a day for three weeks, then Aspirin 81mg twice a day for 3 weeks, STEFAN compression stockings for 3 weeks -Pain control: Recommend Tylenol & intermittent low dose Tramadol for severe pain. Admission and Anticipated Discharge Date Admission Date: October 28, 2021 Supervising Physician Co-Signing Physician Notes I, Dr. Valentino, saw and examined the patient and discussed the management with my PA. I reviewed my PAs note and agree with the documented findings and the plan of care I developed. Subjective Pt is a 89 y.o female who is s/p Intertrochanteric Nailing Right Hip Fracture on right POD #1. She was seen this am approximately 8:30 am. She is sitting upright in bed Alert and Oriented x3. She is pleasant, OMAHA. She states she is having some pain in the right hip and knee when she tries to move the leg. She explains she is concerned about trying to get out of bed. She denies any drainage or redness over the right leg. She denies any fever, chills, CP, SOB, or calf pain. Review of Systems Review of Systems: Please refer to H&P Physical Exam Constitutional: well developed and well nourished Eyes: EOM intact bilaterally ENMT: Ears: + hearing impairment Respiratory: normal respiratory effort Musculoskeletal: right hip 3 incisions are covered w/ dressing. Dressings are dry and neg for any drainage. resolving ecchymosis over the thigh/hip as expected. Neg for any erythema or warmth. Tolerates gentle AAROM of the hip with minimal pain. Able to flex and extend knee with some pain. Able to Actively DF and PF ankle. Calf is soft, nontender, neg for erythema or warmth. DP 2+. RLE is NVI. Results & Data ([facility]) Vital Signs (Past 12 Hours) Vital Signs Temp Pulse Resp BP Pulse Ox O2 Del Method O2 Del Method 08/30/22 08:13 37.0 C 89 16 108/67 97 Room Air 10/30/21 02:00 Room Air 10/30/21 03:02 36.8 C 87 18 133/75 94 Room Air 10/29/21 22:01 36.5 C 83 18 109/69 95
[2021-10-30] MEDS: CYANOCOBALAMIN (B-12) 500 MCG TABLET PO SCH (12:00)
[2021-10-30] MEDS: LORATADINE 10 MG TAB PO SCH (12:00)
[2021-10-30] MEDS: CHOLECALCIFEROL 1,000 UNITS 25 MCG TAB PO SCH (12:00)
--- NOTE | 2021-10-30 15:22 | Hospitalist Progress Note ---
Date of Service October 30, 2021 Assessment & Plan (1) Closed hip fracture: Plan 89-year-old lady with PMH of HTN, HLD, hypothyroidism, right breast cancer status post Arimidex treatment, past tobacco abuse presented to our hospital 10/28 with complaint of fall during shower on the day of arrival. She is being managed for the following: Traumatic right hip fracture Mechanical fall Patient fell during shower, reports right lower extremity giving up at knee. Denies trauma to head. Denies LOC. Admitting hip/pelvis x-ray:Acute comminuted displaced intertrochanteric fracture of the right femur. CPK minimally elevated, and stable. Patient eating okay. Likely can discharge to SNF. Pain management, PT/OT and DVT prophylaxis per Ortho postoperatively. Hypertension: Blood pressure initially elevated due to acute stress, fairly under control. Caution with antihypertensive during perioperative period. Prediabetes: A1c 5.8 at presentation, recommend lifestyle modification and close follow-up with PCP for ongoing management. Other chronic medical conditions: Hypothyroidism, status post surgery and Arimidex treatment for right breast cancer, past tobacco abuse --->> continue with/resume home meds as and when appropriate. DVT prophylaxis: Per Ortho Full code Dispo: Patient can likely get discharged to SNF. Admission and Anticipated Discharge Date Admission Date: October 28, 2021 Subjective Patient seen and examined at bedside for follow-up of right closed hip fracture. Patient was lying in bed, on room air, NAD, denies any new acute events overnight. Patient is hard of hearing. Patient reports eating okay, denies any bowel movement, continue to monitor, denies belly pain. Patient reports pain at operative site under control with pain medications. Patient denies any fever/headache/dizziness/chest pain/sore throat/cough/other review of symptoms. Physical Exam Physical Exam: GENERAL: Alert and oriented x3. NAD, on RA. [place] HEENT: No pallor, no icterus. Pupils equal, round and reactive to light. Oral mucosa moist. NECK: No JVD, no neck masses. HEART: S1 and S2 heard. Regular rate and rhythm. Systolic murmur at aortic and pulmonic site, no gallop. RESPIRATORY SYSTEM: Normal AP diameter. No accessory muscle use. No wheezing, no crackles. ABDOMEN: Soft, bowel sounds present, nontender, no distention. CENTRAL NERVOUS SYSTEM: No facial droop. Speech is clear. Obeys simple commands. Moves extremities. EXTREMITIES: No edema, no erythema seen. Distal NV status WNL X RLE; right hip with clean dressing without soakage. Results & Data Results & Data ([facility]) Vital Signs (Past 12 Hours) Vital Signs Temp Pulse Resp BP Pulse Ox Pulse Ox Pulse Ox 10/30/21 11:22 36.7 C 87 16 134/57 L 94 10/30/21 10:33 97 94 10/30/21 08:13 37.0 C 89 16 108/67 97 O2 Del Method O2 Flow Rate O2 Flow Rate 10/30/21 11:22 Room Air 10/30/21 10:33 0 0 10/30/21 08:13 Room Air
[2021-10-30] MEDS: ACETAMINOPHEN 325 MG TAB PO PRN (20:01)
[2021-10-31] MEDS: ARMOUR THYROID 30 MG TAB PO SCH (05:57)
[2021-10-31] MEDS: ENOXAPARIN INJ 30 MG/0.3 ML SYR SQ SCH ×2 (05:57→18:30)
[2021-10-31] MEDS: ACETAMINOPHEN 325 MG TAB PO PRN (05:57)
[2021-10-31 06:32] LABS: Hematocrit (blood only) 26.5 % (34.1-44.9); Hemoglobin 8.7 g/dl (12.0-16.0); Mean Corpuscular Hemoglobin 30.2 pg (25.0-34.0); Mean Corpuscular Hgb Conc 32.8 g/dL (32.0-36.0); Mean Platelet Volume 10.4 fL (9.4-12.3); Platelet Count 199 K/uL (130-400); RDW Coefficient of Variation 14.6 % (11.5-14.5); RDW Standard Deviation 49.3 fL (36.4-46.3); Red Blood Count 2.88 M/uL (3.93-5.22); White Blood Count 9.52 K/ul (4.8-10.8)
[2021-10-31 07:08] LABS: BUN Creatinine Ratio 20.2 (10-20); Creatinine Clr Calc Pharmacy 39.8 ml/min; Est GFR (African American) 62.8 ml/min; Est GFR (Non-African American) 54.2 ml/min
[2021-10-31] MEDS: CHOLECALCIFEROL 1,000 UNITS 25 MCG TAB PO SCH (09:21)
[2021-10-31] MEDS: FLUTICASONE/VILANTEROL 100/25MCG 14 PUFFS/INHALER INH SCH (09:21)
[2021-10-31] MEDS: CYANOCOBALAMIN (B-12) 500 MCG TABLET PO SCH (09:21)
[2021-10-31] MEDS: allopurinoL 100 MG TAB PO SCH ×2 (09:21→20:25)
[2021-10-31] MEDS: hydroCHLOROthiazide 25 MG TAB PO SCH (09:21)
[2021-10-31] MEDS: LORATADINE 10 MG TAB PO SCH (09:21)
--- NOTE | 2021-10-31 09:57 | Orthopedic Progress Note ---
Date of Service October 31, 2021 Assessment & Plan (1) Closed hip fracture: Plan: Traumatic right hip fracture Mechanical fall - Pt is doing as anticipated POD#2 - Dressing changed today. Leave in place until post op appointment. -Weight bearing as tolerated with walker and assist as needed in ambulation -Anticipate and recommend d/c to SNF for rehabilitation, Continue with PT/OT while in hospital -She may use ice, at least 20 minutes 5 times a day to right hip for pain relief. -DVT prophylaxis: Lovenox 30 SQ twice a day for three weeks, then Aspirin 81mg twice a day for 3 weeks, STEFAN compression stockings for 3 weeks -Pain control: Recommend Tylenol & intermittent low dose Tramadol for severe pain. -Follow up in our office as scheduled in approximately 2 weeks as scheduled. Admission and Anticipated Discharge Date Admission Date: October 28, 2021 Supervising Physician Co-Signing Physician Notes I, Dr. Valentino, saw and examined the patient and discussed the management with my PA. I reviewed my PAs note and agree with the documented findings and the plan of care I developed. Subjective Patient doing well, no complaints of fevers, chills, nausea, vomiting, chest pain or shortness of breath. Has been out of bed with therapy. States that her leg feels heavy and it feels like "something is in the way". Dr. Valentino present for today's visit. Physical Exam Musculoskeletal: Distal pulses 1+, able to actively do ankle ROM and strength 5/5. Distal sensation normal, mild calf pain with palpation, equal bilaterally. No distal edema, AV impulse boots in place. No right knee effusion. Dressings right lateral thigh clean, dry and intact. Removed today and applied Silverlon on most distal incision and Mepilex on upper incisions. Results & Data ([facility]) Vital Signs (Past 12 Hours) Vital Signs Temp Pulse Resp BP BP Pulse Ox O2 Del Method 10/31/21 09:19 72 126/78 10/31/21 07:50 Room Air 10/31/21 07:42 36.8 C 85 16 115/72 95 Room Air 10/30/21 22:27 37.0 C 93 H 18 106/66 95 Room Air Laboratory Results 10/31/21 10/31/21 Range/Units 05:55 05:55 WBC 9.52 (4.8-10.8) K/ul RBC 2.88 L (3.93-5.22) M/uL Hgb 8.7 L (12.0-16.0) g/dl Hct 26.5 L (34.1-44.9) % MCV 92.0 (80.0-100.0) fL MCH 30.2 (25.0-34.0) pg MCHC 32.8 (32.0-36.0) g/dL RDW Std Deviation 49.3 H (36.4-46.3) fL RDW Coeff of Brijesh 14.6 H (11.5-14.5) % Plt Count 199 (130-400) K/uL MPV 10.4 (9.4-12.3) fL Sodium 133 L (136-145) mmol/L Potassium 4.0 (3.5-5.1) mmol/L Chloride 104 (98-107) mmol/L Carbon Dioxide 23 (21-32) mmol/L Anion Gap 6 (3-11) BUN 19 (6-23) mg/dl Creatinine 0.94 (0.6-1.2) mg/dl Est Cr Clr Drug Dosing 39.8 ml/min Est GFR ( Amer) 62.8 ml/min Est GFR (Non-Af Amer) 54.2 ml/min BUN/Creatinine Ratio 20.2 H (10-20) Glucose 114 H (70-99(Fasting)) mg/dl Calcium 8.0 L (8.5-10.1) mg/dl
--- NOTE | 2021-10-31 12:46 | Hospitalist Progress Note ---
Date of Service October 31, 2021 Assessment & Plan (1) Closed hip fracture: Plan 89-year-old lady with PMH of HTN, HLD, hypothyroidism, right breast cancer status post Arimidex treatment, past tobacco abuse presented to our hospital 10/28 with complaint of fall during shower on the day of arrival. She is being managed for the following: Traumatic right hip fracture Mechanical fall Patient fell during shower. Denies trauma to head. Denies LOC. Admitting hip/pelvis x-ray:Acute comminuted displaced intertrochanteric fracture of the right femur. CPK minimally elevated and stable. Patient reports she does not want tramadol as it made her confused yesterday She tolerated morphine better. Will continue scheduled tylenol and use prn mophine 1mg for pain Discussed post po management with patient and need for early ambulation She agreed to work with PT tomorrow Hb was 10.6 preop, currently 8.7 Possible blood loss anemia + dilutional Monitor Hypertension: BP better controlled post op Will check orthostatic vitals today Prediabetes: A1c 5.8 at presentation Follow-up with PCP for ongoing management. Other chronic medical conditions: Hypothyroidism, status post surgery and Arimidex treatment for right breast cancer, past tobacco abuse Continue home meds DVT prophylaxis: Continue lovenox x then ASA x Full code Dispo: Patient to be discharged to [facility] on Friday Called and updated son Dr Lloyd. He reported she has chronic leg numbness from B12 deficiency and that she was quite independent prior to fall. Admission and Anticipated Discharge Date Admission Date: October 28, 2021 Subjective 89-year-old lady with PMH of HTN, HLD, hypothyroidism, right breast cancer status post Arimidex treatment, past tobacco abuse presented to our hospital 10/28 with complaint of fall during shower. Being managed for right hip fracture s/p intertrochanteric nailing Patient seen and examined Reports right hip pain at surgical site especially with activity. She reports difficulty raising legs especially right leg due to that She reports numbness in both legs which she reported has been ongoing prior to fracture. She stated her granddaughter who is medical care had noted that when she did some testing for her She did not get much PT today as she complained of the numbness then and reported she felt she was having a stroke. PT was interrupted. When i asked about why she thought she was having a stroke, she stated that with the numbness and difficulty moving her feet that she felt she was going to fall. She only reported difficulty moving the legs especially the right due to pain She denied any headache, dizziness, blurred vision, change in speech, difficulty swallowing She has hearing deficits for which she uses hearing aid Denied any fevers, chills, nausea, vomiting, abd pain Denied chest pain, cough, shortness of breath or palpitation Physical Exam Constitutional: + acute distress and + well hydrated Elderly woman Eyes: PERRL, conjunctivae normal, anicteric sclerae ENMT: external ear and nose normal, oropharynx normal Hearing aides in Respiratory: normal respiratory effort, lungs clear to auscultation Cardiovascular: Rate/Rhythm: regular rate and regular rhythm S1 S2 Gastrointestinal (Abdomen): normal bowel sounds, soft, nontender, no hepatosplenomegaly Musculoskeletal: Clean dressing over right hip No pedal edema Neurologic: PERRL, EOMI, accommodation nl, no face palsy, no dysarthria Psychiatric: A+Ox3, euthymic affect Genitourinary: Ackerman in situ Results & Data Results & Data ([facility]) Vital Signs (Past 12 Hours) Vital Signs Temp Pulse Resp BP BP Pulse Ox Pulse Ox 10/31/21 10:34 146/78 H 10/31/21 10:00 94 10/31/21 09:19 72 126/78 10/31/21 07:50 10/31/21 07:42 36.8 C 85 16 115/72 95 O2 Del Method O2 Del Method 10/31/21 10:34 10/31/21 10:00 Room Air 10/31/21 09:19 10/31/21 07:50 Room Air 10/31/21 07:42 Room Air Laboratory Results Abnormal lab results 10/31/21 10/31/21 Range/Units 05:55 05:55 RBC 2.88 L (3.93-5.22) M/uL Hgb 8.7 L (12.0-16.0) g/dl Hct 26.5 L (34.1-44.9) % RDW Std Deviation 49.3 H (36.4-46.3) fL RDW Coeff of Brijesh 14.6 H (11.5-14.5) % Sodium 133 L (136-145) mmol/L BUN/Creatinine Ratio 20.2 H (10-20) Glucose 114 H (70-99(Fasting)) mg/dl Calcium 8.0 L (8.5-10.1) mg/dl
[2021-10-31] MEDS: ACETAMINOPHEN 500 MG TAB PO SCH ×2 (14:20→20:26)
[2021-10-31] MEDS ORDERED: MoRPHine SULFATE 2 MG/ML CARP IV PRN (15:25)
[2021-10-31] MEDS ORDERED: POLYETHYLENE (MIRALAX) 17 GM PACK PO PRN (21:24)
[2021-10-31] MEDS ORDERED: SODIUM CHLORIDE 0.9% 1000ML 1,000 ML IV ONE (21:25)
--- NOTE | 2021-10-31 21:25 | Communication Note ---
Date of Service: October 31, 2021 Patient orthostatic as per RN. Patient physician son requesting for home diuretic to be held. AP Orthostasis Hold home diuretic Gentle IVF Will relay to AM provider.
[2021-10-31] MEDS ORDERED: POLYETHYLENE (MIRALAX) 17 GM PACK PO STA (21:26)
[2021-10-31] MEDS: DOCUSATE SODIUM/SENNA 50/8.6MG TAB PO SCH (22:17)
[2021-11-01] MEDS: ARMOUR THYROID 30 MG TAB PO SCH (06:09)
[2021-11-01] MEDS: ACETAMINOPHEN 500 MG TAB PO SCH ×3 (06:09→20:59)
[2021-11-01] MEDS: ENOXAPARIN INJ 30 MG/0.3 ML SYR SQ SCH ×2 (06:14→17:58)
[2021-11-01 08:21] LABS: Hematocrit (blood only) 25.7 % (34.1-44.9); Hemoglobin 8.4 g/dl (12.0-16.0); Mean Corpuscular Hemoglobin 30.2 pg (25.0-34.0); Mean Corpuscular Hgb Conc 32.7 g/dL (32.0-36.0); Mean Corpuscular Volume 92.4 fL (80.0-100.0); Platelet Count 238 K/uL (130-400); RDW Coefficient of Variation 14.5 % (11.5-14.5); RDW Standard Deviation 48.7 fL (36.4-46.3); Red Blood Count 2.78 M/uL (3.93-5.22); White Blood Count 8.47 K/ul (4.8-10.8)
[2021-11-01] MEDS: CHOLECALCIFEROL 1,000 UNITS 25 MCG TAB PO SCH (08:38)
[2021-11-01] MEDS: allopurinoL 100 MG TAB PO SCH ×2 (08:38→20:59)
[2021-11-01] MEDS: DOCUSATE SODIUM/SENNA 50/8.6MG TAB PO SCH (08:38)
[2021-11-01] MEDS: CYANOCOBALAMIN (B-12) 500 MCG TABLET PO SCH (08:38)
[2021-11-01] MEDS: FLUTICASONE/VILANTEROL 100/25MCG 14 PUFFS/INHALER INH SCH (08:38)
[2021-11-01] MEDS: LORATADINE 10 MG TAB PO SCH (08:38)
[2021-11-01 08:47] LABS: BUN Creatinine Ratio 24.4 (10-20); Calcium 8.2 mg/dl (8.5-10.1); Creatinine Clr Calc Pharmacy 41.6 ml/min; Est GFR (African American) 66.2 ml/min; Est GFR (Non-African American) 57.1 ml/min; Potassium 4.4 mmol/L (3.5-5.1)
--- NOTE | 2021-11-01 09:14 | Orthopedic Progress Note ---
Date of Service November 01, 2021 Assessment & Plan (1) S/P ORIF (open reduction internal fixation) fracture: Plan: Dressings were left in place today. Anticipate that she will be discharged to [facility] tomorrow pending bed availability. Continue weightbearing as tolerated with her walker. She was encouraged to participate in both PT and OT. Continue DVT prophylaxis. Follow-up in the office in 2 weeks as scheduled for staple removal. Admission and Anticipated Discharge Date Admission Date: October 28, 2021 Subjective Patient is seen in her room this morning. She states she feels better today than she did yesterday. She is starting to feel more like her usual self. She still has pain in the right hip. She states she has been doing some exercises in bed, but still feels as though her leg is too weak to stand on. She denies any chest pain, shortness of breath, abdominal pain, nausea, or vomiting. No other complaints. Physical Exam Physical Exam: General: Well-developed, well-nourished, elderly white female, in no acute distress. Sitting in bed. Alert and oriented. Conversive. Skin: Warm and dry with good turgor. No rashes. No ecchymosis or erythema. Postsurgical dressings are in place on the right thigh. There is no bleed through. Musculoskeletal: Patient has no significant discomfort with logrolling of the right hip. She has intact motor function of the ankle and toes. There is significant difficulty in attempting a straight leg raise. She is able to flex and extend her hip and knee, though motion is limited secondary to pain. Neurologic: Gross sensation is intact across the lower extremities by soft touch. Decreased subjective sensation across her feet, which is baseline. Peripheral pulses are 2+. Results & Data ([facility]) Vital Signs (Past 12 Hours) Vital Signs Temp Pulse Pulse Resp BP Pulse Ox O2 Del Method 11/01/21 08:41 Room Air 11/01/21 07:35 36.7 C 74 20 97/59 L 95 Room Air 10/31/21 21:52 36.8 C 84 16 106/64 96 Laboratory Results CBC obtained today shows white count of 8.64. H&H of 8.4 and 25.7. Platelets 238,000. PRP shows sodium 135, potassium 4.4, CO2 24, BUN 22, creatinine 0.90. Glucose 100.
--- NOTE | 2021-11-01 11:21 | Hospitalist Progress Note ---
Date of Service November 01, 2021 Assessment & Plan (1) Closed hip fracture: Plan 89-year-old lady with PMH of HTN, HLD, hypothyroidism, right breast cancer status post Arimidex treatment, past tobacco abuse presented to our hospital 10/28 with complaint of fall during shower on the day of arrival. She is being managed for the following: Traumatic right hip fracture Mechanical fall Patient fell during shower. Denies trauma to head. Denies LOC. Admitting hip/pelvis x-ray:Acute comminuted displaced intertrochanteric fracture of the right femur. Status post ORIF (open reduction internal fixation) fracture on 10/29/[address] Valentino Current pain regimen of tylenol and PRN morphine 1mg working. Patient not longer wants tramadol as it made her confused Discussed post po management with patient and need for early ambulation Motivated to work with therapy services today Hb was 10.6 preop, currently 8.4 (8.7 yesterday) Possible blood loss anemia + dilutional Monitor with daily CBC Hypertension: BP better controlled post op Will check orthostatic vitals today Prediabetes: A1c 5.8 at presentation Follow-up with PCP for ongoing management. Other chronic medical conditions: Hypothyroidism, status post surgery and Arimidex treatment for right breast cancer, past tobacco abuse Continue home meds DVT prophylaxis: Continue lovenox x/ then ASA x 3 Full code Dispo: Patient to be discharged to [facility] on Friday Son Dr Lloyd was updated yesterday by Dr. Gill. He reported she has chronic leg numbness from B12 deficiency and that she was quite independent prior to fall. Admission and Anticipated Discharge Date Admission Date: October 28, 2021 Supervising Physician Co-Signing Physician Notes 89-year-old lady with PMH of HTN, HLD, hypothyroidism, right breast cancer status post Arimidex treatment, past tobacco abuse presented to our hospital 10/28 with complaint of fall in the shower. Found to have right hip fracture s/p intertrochanteric nailing POD #3 Patient reports pain is better controlled and she is able to move her legs better today. Passing flatus but yet to have BM Exam notable for elderly woman in no distress, hearing aid in situ, clean dressi ng over right hip, yates in situ, AOx3 Will continue tylenol scheduled PT/OT while inpatient Remove yates. Can use puerwick Holding home HCTZ. BP normal Hb drop post op is acute blood loss anemia + dilutional. Hb remains stable since Care coordinated with Jennie Walters PA-C Agree with other plans detailed in her note Subjective Patient seen and examined in 320-1. Feeling better today. Enjoyed breakfast and feels like she has more of an appetite. Hip pain under control although has not been able to ambulate much yet. Is moving around her feet and legs gently per Ortho recommendation. Denies any fever, chills, headache, chest pain, shortness of breath, nausea, vomiting, abdominal pain, dysuria or diarrhea. No post-op bowel movement yet but passing flatus, on bowel regimen. Review of Systems Review of Systems: At least ten systems reviewed and negative except as noted in the HPI. Physical Exam Physical Exam: Gen: WD/WN, NAD, lying in bed, A&Ox3, pleasant HEENT: Normocephalic, atraumatic, conjunctivae moist, sclerae anicteric, mucous membranes moist Lung: Clear to Auscultation bilaterally, no wheezes/rales/rhonchi Heart: Regular rate, regular rhythm, no murmurs, rubs, or gallops Abdomen: Soft, NT, ND +BS x 4 Extremities: R hip with dressing c/d/i, No ecchymosis, erythema or edema Skin: Warm, no rash Results & Data Results & Data ([facility]) Vital Signs (Past 12 Hours) Vital Signs Temp Pulse Resp BP Pulse Ox O2 Del Method 11/01/21 08:41 Room Air 11/01/21 07:35 36.7 C 74 20 97/59 L 95 Room Air Laboratory Results Short CBC 11/01/21 Range/Units 07:59 WBC 8.47 (4.8-10.8) K/ul Hgb 8.4 L (12.0-16.0) g/dl Hct 25.7 L (34.1-44.9) % Plt Count 238 (130-400) K/uL BMP 11/01/21 07:59 Sodium 135 L Potassium 4.4 Chloride 104 Carbon Dioxide 24 BUN 22 Creatinine 0.90 Glucose 100 H Calcium 8.2 L Diagnostic Findings Hip/Pelvis X-Ray 10/28/21 17:35 XR hip RT 2V w pelvis CLINICAL HISTORY: Right hip pain following fall. COMPARISON: None FINDINGS: Note is made of an acute comminuted displaced intertrochanteric fracture of the right femur. No acute fracture within the pelvis or left hip is noted. Moderate bilateral hip osteoarthritis is present. IMPRESSION: Acute comminuted displaced intertrochanteric fracture of the right femur. ACT 112: Negative or not required by law. Electronically signed by: Rosalio Navarro M.D. 10/28/2021 6:42 PM Chest X-Ray 10/28/21 18:34 XR chest 1V portable CLINICAL HISTORY: hip fx COMPARISON STUDY: Chest radiograph November 07, 2019. FINDINGS: Lung volumes are normal. Lungs are clear. There is no pneumothorax or pleural effusion. Cardiac size is stable. Mediastinal contours are normal. There is no evidence for pulmonary edema. IMPRESSION: No acute cardiopulmonary findings. No change in appearance of the chest. ACT 112: Negative or not required by law. Electronically signed by: Rosalio Navarro M.D. 10/28/2021 6:42 PM Venous Doppler Study 10/28/21 20:21 LEFT LOWER EXTREMITY VENOUS DOPPLER HISTORY: Left ankle swelling/pain COMPARISON STUDY: None. FINDINGS: There is normal compressibility, flow, and augmentation within the left lower extremity deep venous system. IMPRESSION: No DVT within the left lower extremity. ACT 112: Negative or not required by law. Electronically signed by: Alex Linton M.D. 10/29/2021 7:11 AM Hip X-Ray 10/29/21 11:00 FL hip RT 2-3V CLINICAL HISTORY: RT TROCH NAIL TECHNIQUE: 4 views were obtained with the C-arm in the OR with the above procedure. Total fluoroscopy time was 152.9 seconds. Total skin dose was 31.3 mGy. Comparison: None available at the time of this dictation. FINDINGS/IMPRESSION: Intraoperative images were obtained of right trochanteric nail placement. Please correlate with intraoperative fluoroscopy and operative report. ACT 112: Negative or not required by law. Electronically signed by: Boston Arriaga M.D. 10/29/2021 3:03 PM Femur X-Ray 10/29/21 14:28 XR femur RT 2V routine CLINICAL HISTORY: Post-Operative implant position. COMPARISON: Pelvis and right hip radiographs October 28, 2021. FINDINGS: Postoperative findings consistent with open reduction and internal fixation of the intertrochanteric fracture of the right hip with intramedullary felipe and nail are noted. Fracture alignment has markedly improved. Displacement of the lesser trochanter has improved. There are no unexpected radiopaque foreign bodies. There are distal screws. IMPRESSION: Postoperative radiographs demonstrating internal fixation of the intertrochanteric fracture of the right femur. ACT 112: Negative or not required by law. Electronically signed by: Rosalio Navarro M.D. 10/29/2021 3:49 PM
--- NOTE | 2021-11-01 19:00 | Communication Note ---
Date of Service: November 01, 2021 Patient seen and examined 89-year-old lady with PMH of HTN, HLD, hypothyroidism, right breast cancer status post Arimidex treatment, past tobacco abuse presented to our hospital 10/28 with complaint of fall in the shower. Found to have right hip fracture s/p intertrochanteric nailing POD #3 Patient reports pain is better controlled and she is able to move her legs better today. Passing flatus but yet to have BM Exam notable for elderly woman in no distress, hearing aid in situ, clean dressing over right hip, yates in situ, AOx3 Will continue tylenol scheduled PT/OT while inpatient Remove yates. Can use puerwick Holding home HCTZ. BP normal Care coordinated with Jennie Walters PA-C Agree with other plans detailed in her note
[2021-11-02] MEDS: ARMOUR THYROID 30 MG TAB PO SCH (06:06)
[2021-11-02] MEDS: ACETAMINOPHEN 500 MG TAB PO SCH (06:08)
[2021-11-02] MEDS: ENOXAPARIN INJ 30 MG/0.3 ML SYR SQ SCH (06:08)
[2021-11-02] MEDS: DOCUSATE SODIUM/SENNA 50/8.6MG TAB PO SCH (08:19)
[2021-11-02] MEDS: CHOLECALCIFEROL 1,000 UNITS 25 MCG TAB PO SCH (08:19)
[2021-11-02] MEDS: CYANOCOBALAMIN (B-12) 500 MCG TABLET PO SCH (08:19)
[2021-11-02] MEDS: allopurinoL 100 MG TAB PO SCH (08:20)
[2021-11-02] MEDS: FLUTICASONE/VILANTEROL 100/25MCG 14 PUFFS/INHALER INH SCH (08:20)
[2021-11-02] MEDS: LORATADINE 10 MG TAB PO SCH (08:20)
--- NOTE | 2021-11-02 10:12 | Discharge Summary ---
Date of Service November 02, 2021 Admission HPI Per Admitting Provider History obtained from patient, family, and records. History somewhat limited from patient secondary to hearing impairment. Medical history significant for hypertension, hyperlipidemia hypothyroidism, right breast cancer status post surgery status post Arimidex Rx, past tobacco abuse. Patient fell in the shower today. Achy right hip pain without head trauma. No chest pain, no SOB, no LOC. Patient unable to get up from the floor. Patient also complaining of left lower extremity swelling/bump which she has noted for about a month. PCP had recommended an outpatient leg venous ultrasound to rule out a clot which patient has not complied with. Patient brought to the ER for evaluation. Medical History as above Surgical History : Finger amputation, mastectomy right, parotidectomy, cataract surgery, PETER, tonsillectomy/adenoidectomy Family History : DM, heart disease, stroke, brain tumor Personal/Social history : Past tobacco abuse, no EtOH intake, retired sonog rapher, lives by herself Baseline Functionality : Still able to do light housework at home without rest/exertional chest pain, S OB prior to injury Admission Exam Per Admitting Provider GENERAL: Comfortable, slightly hard of hearing, obese, no respiratory distress SKIN: Normal color, warm HEENT: Odem palpebral conjunctivae, no ptosis, moist buccal mucosa NECK : Supple, no tenderness CHEST : CTA, no tenderness HEART : RRR, no obvious murmurs ABDOMEN: Some distention, nontender EXTREMITIES : Bilateral LE swelling with venous varicosities, right hip tenderness, minimal LLE tenderness NEUROLOGIC : Coherent, no facial asymmetry, hard of hearing, gait and stance not assessed Principal Diagnosis Traumatic right hip fracture Mechanical fall Discharge Exam Gen: WD/WN, NAD, lying in bed, A&Ox3, pleasant HEENT: Normocephalic, atraumatic, conjunctivae moist, sclerae anicteric, mucous membranes moist Lung: Clear to Auscultation bilaterally, no wheezes/rales/rhonchi Heart: Regular rate, regular rhythm, no murmurs, rubs, or gallops Abdomen: Soft, NT, ND +BS x 4 Extremities: R hip with dressing c/d/i, No ecchymosis, erythema or edema Skin: Warm, no rash Discharge Data Allergies Allergy/AdvReac Type Severity Reaction Status Date / Time chocolate flavor Allergy Intermediate FACE Verified 10/28/21 19:30 BREAKS OUT, GETS INFECTED latex Allergy Intermediate Hives Verified 10/28/21 19:30 erythromycin base Allergy Unknown UNKNOWN Verified 10/28/21 19:30 Penicillins Allergy Unknown UNKNOWN Verified 10/28/21 19:30 Hhlsxaz-WEP-AnA Reductase Allergy Unknown CAN'T Verified 10/28/21 19:30 Inhibitor REMEMBER [Tcrxdhk-Dpg-Bzd Reductase Inhibitor] Sulfa (Sulfonamide Allergy Unknown UNKNOWN Verified 10/28/21 19:30 Antibiotics) Consultations 10/28/21 18:54 ED Decision to Admit Stat 10/28/21 21:31 Consult Orthopedic Surgery Routine Procedures Performed Operation Date: 10/29/21 09:30 Actual Procedures p Intertrochanteric Nailing Right Hip Fracture(Right) - Luis M Jacky Valentino MD Ordered Studies 10/28/21 20:21 US venous doppler LE LT Urgent 10/29/21 11:00 FL hip RT 2-3V Routine Hospital Course (1) Closed hip fracture: (2) S/P ORIF (open reduction internal fixation) fracture: (3) Hypertension: Plan This is an 89-year-old lady with PMH of HTN, HLD, hypothyroidism, right breast cancer status post Arimidex treatment, past tobacco abuse presented to our hospital 10/28 with complaint of fall during shower on the day of arrival. Admitting hip/pelvis x-ray revealed an acute comminuted displaced intertrochanteric fracture of the right femur and patient is status post ORIF (open reduction internal fixation) fracture on 10/29/[address] Valentino. Current pain regimen includes PRN Tylenol. Patient very motivated to work with therapy. BP has been low-normal range post-operatively so will continue to hold hydrochlorothiazide for now. Providers at facility to continue blood pressure monitoring and resume as indicated. Passing flatus post-operatively but no bowel movement yet. Continue bowel regimen at discharge. Continue VTE prophylaxis as per ortho with SQ Lovenox 30mg Q12 for remainder of 3 weeks post-operatively before transitioning to aspirin 81mg BID x 3 weeks. Follow up with orthopedics as instructed. Had post op drop in Hb from 10 to 8. Likely acute blood loss anemia + dilutional. Hb has been stable in ronald 8x Discussed instructions with patient who is comfortable and hemodynamically stable at time of discharge to SNF. Total Time Total Time Spent Total Time Spent (In Minutes): 55 Discharge Plan Discharge Items Patient Disposition: Transfer Retirement Fac Reason For Visit: HIP FX Discharge Diagnosis: Traumatic right hip fracture Mechanical fall Activity: Per Instructions section Weightbearing: Right weightbearing Weightbearing Comment: with walker assistance Non-emergency contact: Surgeon Call non-emergency contact if: you have any medication questions, your symptoms worsen, your temperature is above 101, your wound has increased redness and your wound has increased drainage Follow-up/Referrals: Kaila Kwon MD [Primary Care Provider] - Paola Patel PA-C [Physician Moisture Meter Reader] - 11/14/21 9:30 am Diet: Heart Healthy [facility] Attending Provider Instructions: Mrs Lloyd. You came to the hospital after a fall and found to have right hip fracture. You had surgical repair by the Orthopedic surgeon. You are being discharged to [facility] for some rehab. Your home blood pressure medication, hydrochlorothiazide is currently suspended due to episodes of low blood pressure. Please monitor your blood pressure at the nursing facility and medication may be resumed as your blood pressure improves. Please ensure follow up with Orthopedics and your Primary Doctor. It was a pleasure taking care of you. Add Director Of Marketing Operations Provider Instructions: ORTHOPEDIC DISCHARGE INSTRUCTIONS -Weight bearing as tolerated with walker to assist in ambulation -You will be going to a short-term nursing facility that will provide physical/occupational therapy and rehab exercises. -Frequently ice, at least 20 minutes 5 times a day. -You may shower. Please leave on Mepilex dressing until follow up appointment. It is a water-resistance dressing and you can shower with it on, letting some light water/mist from the shower run over top of it as long as all the edges are in tact. You cannot submerge your incision in water. No baths, hot tubs or swimming pools. Keep dressing clean and dry. If edges start to peel and there is moisture underneath of it, nursing may reinforce as needed. -DVT prophylaxis: Lovenox 30 SQ twice a day for three weeks, then Aspirin 81mg twice a day for 3 weeks, STEFAN compression stockings for 3 weeks -While taking Aspirin, if you start to get upset stomach, we recommend taking over the counter Pepcid, 20mg twice a day as long as you are taking the Aspirin -Pain control: Recommend oxycodone 5mg every 4-6 hours as needed, Tylenol 500- 1000mg every 8 hours -While on narcotic pain medication, we recommend you take a stool softener to prevent constipation -Follow up in 2 weeks with [facility] for post op evaluation and Zip-line removal. Please call our office sooner @ [phone] if you have any questions or concerns Pending Studies at Discharge: No Stand-Alone Forms: [facility] Skilled Items Patient informed of condition?: Yes DNR: No Discharge Level of Care: Skilled Communicable Disease: No Discharge Prognosis: Stable Lines: None Urinary Catheter: No Medications and DC Order Prescriptions: New sennosides-docusate sodium [Senokot-S] 8.6-50 mg Tablet 1 tab PO QAM PRN (Reason: constipation) Qty: 30 0RF Rx Instructions: Take 1 tab daily as needed for constipation enoxaparin [Lovenox] 30 mg/0.3 mL Syringe 30 mg subcut Q12H 18 Days Qty: 10.8 0RF Rx Instructions: Continue 30mg SQ Q12 until 3 week course complete polyethylene glycol 3350 [Miralax] 17 gram Powder In Packet 17 g PO DAILY PRN (Reason: constipation) Qty: 14 0RF Continued zinc 50 mg tablet 50 mg PO QAM fluticasone propion-salmeterol 250-50 mcg/dose blister with device 1 inh INHALATION BID Qty: 60 0RF Rx Instructions: rinse mouth after use urea 20 % cream 1 applic TOPICAL DAILY Qty: 85 0RF Rx Instructions: apply to callus ondansetron HCl 4 mg tablet 4 mg PO Q8 PRN (Reason: nausea or vomiting) Qty: 14 0RF allopurinol 100 mg tablet 100 mg PO BID Qty: 60 0RF acetaminophen [Tylenol Extra Strength] 500 mg Tablet 500 mg PO DAILY PRN (Reason: Pain) Qty: 30 0RF Rx Instructions: Take 2 500mg tabs (1,000mg) up to three times a day as needed for pain cyanocobalamin (vitamin B-12) 500 mcg tablet 500 mcg PO QAM Qty: 30 0RF sertraline [Zoloft] 25 mg tablet 12.5 mg PO DAILY Qty: 30 0RF loratadine 10 mg tablet 10 mg PO QAM Qty: 30 0RF cholecalciferol (vitamin D3) [Vitamin D3] 25 mcg (1,000 unit) Tablet 25 mcg PO QAM Qty: 30 0RF thyroid (pork) 60 mg tablet 60 mg PO DAILYBB Qty: 30 0RF Discontinued hydrochlorothiazide 12.5 mg capsule 12.5 mg PO QAM Discharge Orders: Discharge Order (Routine); Ordered 11/02/21 Ordered By: Essence Gill Admission Data Admit Date/Time: 10/28/21 20:19 Attending Provider: Essence Gill I. Admit Provider: Mario Dumas Primary Care Provider: Kaila Kwon Other Providers: Ney Baker [facility] ; [place] ; [facility], ; Mario Dumas ; Luis M Valentino ; Laura Bolden ; Jennie Walters Other Interventions: Discharge Summary Assessment (RN) Last Done: 11/02/21 11:11 Supervising Physician Co-Signing Physician Notes Patient seen and examined Agree with findings and plans as detailed by Jennie Chapin PA-C
[2021-11-02] MEDS ORDERED: POLYETHYLENE (MIRALAX) 17 GM PACK PO ONE (10:31)
== END 2021-11-02 12:49 | DRG 481 ==
LOC: ED 17:25 → 3E 20:19 → SUATTDRO 20:19 → 3E 21:14